=== PATIENT | male | born 1965 | race Hispanic/Latino ===

== ENCOUNTER → 2019-06-21 | Outpatient (CLI) | payer MEDICARE ==
[~2019-06-21] MED LIST: LIDOCAINE HCL 2% JELLY 5 ML ONE
[2019-06-21 13:27] VITALS: BP 160/85
== END | disposition home or self-care (01) ==
LOC: WHH 10:00
PROVIDERS: ATTEND Family Medicine
DX: T81.89XA Other complications of procedures, not elsewhere classified, initial encounter (principal); E11.22 Type 2 diabetes mellitus with diabetic chronic kidney disease; I12.0 Hypertensive chronic kidney disease with stage 5 chronic kidney disease or end stage renal disease; N18.6 End stage renal disease; E78.5 Hyperlipidemia, unspecified; F17.290 Nicotine dependence, other tobacco product, uncomplicated; Z99.2 Dependence on renal dialysis; Y83.8 Other surgical procedures as the cause of abnormal reaction of the patient, or of later complication, without mention of misadventure at the time of the procedure; Y92.89 Other specified places as the place of occurrence of the external cause
CPT/HCPCS: 87070; 87077 ×3; 87186 ×3; A6022; A6197; G0463

== ENCOUNTER → 2019-06-28 | Outpatient (CLI) | payer MEDICARE ==
[2019-06-28 10:37] VITALS: BP 135/83
== END | disposition home or self-care (01) ==
LOC: WHH 08:30
PROVIDERS: ATTEND Family Medicine
DX: T81.89XD Other complications of procedures, not elsewhere classified, subsequent encounter (principal); E11.22 Type 2 diabetes mellitus with diabetic chronic kidney disease; I12.0 Hypertensive chronic kidney disease with stage 5 chronic kidney disease or end stage renal disease; N18.6 End stage renal disease; E78.5 Hyperlipidemia, unspecified; F17.290 Nicotine dependence, other tobacco product, uncomplicated; Z99.2 Dependence on renal dialysis; Y83.8 Other surgical procedures as the cause of abnormal reaction of the patient, or of later complication, without mention of misadventure at the time of the procedure
CPT/HCPCS: 11042; 82948; A6022; A6196

== ENCOUNTER → 2019-11-18 | Outpatient (CLI) | payer MEDICARE ==
[~2019-11-18] MED LIST changes: +AMLO-258 PO; +AMOX-429 PO; +ASPI-556 PO; +ATOR20TA65 PO; +CARV25TA PO; +FOLI1TAB85 PO; +HONEY 1 APPL/ML TUBE TP ONE; +HYDR-3420 PO; +INSU100C6 SQ; +INSU100V12 SQ; +LEVO500T2 PO; -LIDOCAINE HCL 2% JELLY 5 ML ONE; +LIDOCAINE HCL 4% LTA SOL 4 ML VIAL ONE; +LOSA100T58 PO
[2019-11-18 12:05] VITALS: BP 174/91
== END | disposition home or self-care (01) ==
LOC: WHH 09:00
PROVIDERS: ATTEND Family Medicine
DX: E11.621 Type 2 diabetes mellitus with foot ulcer (principal); L97.522 Non-pressure chronic ulcer of other part of left foot with fat layer exposed; E11.22 Type 2 diabetes mellitus with diabetic chronic kidney disease; I12.0 Hypertensive chronic kidney disease with stage 5 chronic kidney disease or end stage renal disease; N18.6 End stage renal disease; E11.51 Type 2 diabetes mellitus with diabetic peripheral angiopathy without gangrene; I25.10 Atherosclerotic heart disease of native coronary artery without angina pectoris; E78.5 Hyperlipidemia, unspecified; F17.210 Nicotine dependence, cigarettes, uncomplicated; F32.9 Major depressive disorder, single episode, unspecified; F41.9 Anxiety disorder, unspecified; Z99.2 Dependence on renal dialysis
CPT/HCPCS: 11042; A4450

== ENCOUNTER → 2019-11-22 | Outpatient (CLI) | payer MEDICARE ==
[~2019-11-22] MED LIST changes: -HONEY 1 APPL/ML TUBE TP ONE; -LIDOCAINE HCL 4% LTA SOL 4 ML VIAL ONE
== END | disposition home or self-care (01) ==
LOC: WHH 09:20
PROVIDERS: ATTEND Family Medicine
DX: E11.621 Type 2 diabetes mellitus with foot ulcer (principal); L97.511 Non-pressure chronic ulcer of other part of right foot limited to breakdown of skin; E11.22 Type 2 diabetes mellitus with diabetic chronic kidney disease; I12.0 Hypertensive chronic kidney disease with stage 5 chronic kidney disease or end stage renal disease; N18.6 End stage renal disease; E11.51 Type 2 diabetes mellitus with diabetic peripheral angiopathy without gangrene; I25.10 Atherosclerotic heart disease of native coronary artery without angina pectoris; E78.5 Hyperlipidemia, unspecified; F41.9 Anxiety disorder, unspecified; F32.9 Major depressive disorder, single episode, unspecified; Z99.2 Dependence on renal dialysis
CPT/HCPCS: 93923; G0463

== ENCOUNTER → 2019-11-28 | Outpatient (CLI) | payer MEDICARE | END | disposition home or self-care (01) | LOC: RAH 13:43 | PROVIDERS: ATTEND Family Medicine | DX: E13.621 Other specified diabetes mellitus with foot ulcer (principal); M19.071 Primary osteoarthritis, right ankle and foot ==

== ENCOUNTER → 2019-12-09 | Outpatient (CLI) | payer MEDICARE ==
[~2019-12-09] MED LIST changes: -AMLO-258 PO; +AMLO10TA7 PO; +LIDOCAINE HCL 4% LTA SOL 4 ML VIAL ONE
== END | disposition home or self-care (01) ==
LOC: WHH 09:20
PROVIDERS: ATTEND Family Medicine
DX: E11.621 Type 2 diabetes mellitus with foot ulcer (principal); L97.512 Non-pressure chronic ulcer of other part of right foot with fat layer exposed; E11.22 Type 2 diabetes mellitus with diabetic chronic kidney disease; I12.0 Hypertensive chronic kidney disease with stage 5 chronic kidney disease or end stage renal disease; N18.6 End stage renal disease; E11.21 Type 2 diabetes mellitus with diabetic nephropathy; E11.51 Type 2 diabetes mellitus with diabetic peripheral angiopathy without gangrene; I25.10 Atherosclerotic heart disease of native coronary artery without angina pectoris; M19.071 Primary osteoarthritis, right ankle and foot; E66.9 Obesity, unspecified; E78.5 Hyperlipidemia, unspecified; F32.9 Major depressive disorder, single episode, unspecified; F41.9 Anxiety disorder, unspecified; F17.210 Nicotine dependence, cigarettes, uncomplicated; Z90.49 Acquired absence of other specified parts of digestive tract; Z99.2 Dependence on renal dialysis; Z68.1 Body mass index [BMI] 19.9 or less, adult
CPT/HCPCS: 11042; 11045; 87070; 87077; 87186; A6197

== ENCOUNTER → 2019-12-16 | Outpatient (CLI) | payer MEDICARE ==
[~2019-12-16] MED LIST changes: -AMLO10TA7 PO; -AMOX-429 PO; -ASPI-556 PO; -ATOR20TA65 PO; -CARV25TA PO; -FOLI1TAB85 PO; +GENTAMICIN SULFATE 15 GM CREAM.GM. TP ONE; -HYDR-3420 PO; -INSU100C6 SQ; -INSU100V12 SQ; -LEVO500T2 PO; -LOSA100T58 PO
== END | disposition home or self-care (01) ==
LOC: WHH 09:15
PROVIDERS: ATTEND Family Medicine
DX: E11.621 Type 2 diabetes mellitus with foot ulcer (principal); L97.515 Non-pressure chronic ulcer of other part of right foot with muscle involvement without evidence of necrosis; E11.22 Type 2 diabetes mellitus with diabetic chronic kidney disease; I12.9 Hypertensive chronic kidney disease with stage 1 through stage 4 chronic kidney disease, or unspecified chronic kidney disease; N18.6 End stage renal disease; E11.21 Type 2 diabetes mellitus with diabetic nephropathy; E11.51 Type 2 diabetes mellitus with diabetic peripheral angiopathy without gangrene; I25.10 Atherosclerotic heart disease of native coronary artery without angina pectoris; E66.9 Obesity, unspecified; M19.071 Primary osteoarthritis, right ankle and foot; E78.5 Hyperlipidemia, unspecified; F32.9 Major depressive disorder, single episode, unspecified; F17.210 Nicotine dependence, cigarettes, uncomplicated; F41.9 Anxiety disorder, unspecified; Z99.2 Dependence on renal dialysis; Z68.1 Body mass index [BMI] 19.9 or less, adult; Z90.49 Acquired absence of other specified parts of digestive tract
CPT/HCPCS: 11043; 11046; A6197

== ENCOUNTER → 2019-12-23 | Outpatient (CLI) | payer MEDICARE | END | disposition home or self-care (01) | LOC: WHH 09:00 | PROVIDERS: ATTEND Family Medicine | DX: E11.621 Type 2 diabetes mellitus with foot ulcer (principal); L97.512 Non-pressure chronic ulcer of other part of right foot with fat layer exposed; E11.22 Type 2 diabetes mellitus with diabetic chronic kidney disease; I12.0 Hypertensive chronic kidney disease with stage 5 chronic kidney disease or end stage renal disease; N18.6 End stage renal disease; E11.21 Type 2 diabetes mellitus with diabetic nephropathy; E11.51 Type 2 diabetes mellitus with diabetic peripheral angiopathy without gangrene; I25.10 Atherosclerotic heart disease of native coronary artery without angina pectoris; E78.5 Hyperlipidemia, unspecified; E66.9 Obesity, unspecified; M19.071 Primary osteoarthritis, right ankle and foot; F32.9 Major depressive disorder, single episode, unspecified; F17.210 Nicotine dependence, cigarettes, uncomplicated; F41.9 Anxiety disorder, unspecified; Z90.49 Acquired absence of other specified parts of digestive tract; Z99.2 Dependence on renal dialysis ==

== ENCOUNTER → 2019-12-25 | Outpatient (CLI) | payer MEDICARE ==
[~2019-12-25] MED LIST changes: +AMLO10TA7 PO; +AMOX-429 PO; +ASPI-556 PO; +ATOR20TA65 PO; +CARV25TA PO; +FOLI1TAB85 PO; -GENTAMICIN SULFATE 15 GM CREAM.GM. TP ONE; +HYDR-3420 PO; +INSU100C6 SQ; +INSU100V12 SQ; +LEVO500T2 PO; -LIDOCAINE HCL 4% LTA SOL 4 ML VIAL ONE; +LOSA100T58 PO
== END | disposition home or self-care (01) ==
LOC: WHH 09:00
PROVIDERS: ATTEND Podiatrist Foot & Ankle Surgery
DX: E11.621 Type 2 diabetes mellitus with foot ulcer (principal); L97.512 Non-pressure chronic ulcer of other part of right foot with fat layer exposed; I70.235 Atherosclerosis of native arteries of right leg with ulceration of other part of foot; I70.202 Unspecified atherosclerosis of native arteries of extremities, left leg; E11.22 Type 2 diabetes mellitus with diabetic chronic kidney disease; I12.0 Hypertensive chronic kidney disease with stage 5 chronic kidney disease or end stage renal disease; N18.6 End stage renal disease; E11.21 Type 2 diabetes mellitus with diabetic nephropathy; E11.51 Type 2 diabetes mellitus with diabetic peripheral angiopathy without gangrene; I25.10 Atherosclerotic heart disease of native coronary artery without angina pectoris; E78.5 Hyperlipidemia, unspecified; E66.9 Obesity, unspecified; M19.071 Primary osteoarthritis, right ankle and foot; F32.9 Major depressive disorder, single episode, unspecified; F17.210 Nicotine dependence, cigarettes, uncomplicated; F41.9 Anxiety disorder, unspecified; Z90.49 Acquired absence of other specified parts of digestive tract; Z68.1 Body mass index [BMI] 19.9 or less, adult; Z99.2 Dependence on renal dialysis
CPT/HCPCS: G0463

== ENCOUNTER → 2019-12-30 | Outpatient (CLI) | payer MEDICARE ==
[~2019-12-30] MED LIST changes: +LIDOCAINE HCL 4% LTA SOL 4 ML VIAL ONE
== END | disposition home or self-care (01) ==
LOC: WHH 09:00
PROVIDERS: ATTEND Family Medicine
DX: E11.621 Type 2 diabetes mellitus with foot ulcer (principal); L97.512 Non-pressure chronic ulcer of other part of right foot with fat layer exposed; I70.235 Atherosclerosis of native arteries of right leg with ulceration of other part of foot; I70.202 Unspecified atherosclerosis of native arteries of extremities, left leg; E11.22 Type 2 diabetes mellitus with diabetic chronic kidney disease; I12.0 Hypertensive chronic kidney disease with stage 5 chronic kidney disease or end stage renal disease; N18.6 End stage renal disease; E11.21 Type 2 diabetes mellitus with diabetic nephropathy; E11.51 Type 2 diabetes mellitus with diabetic peripheral angiopathy without gangrene; I25.10 Atherosclerotic heart disease of native coronary artery without angina pectoris; E78.5 Hyperlipidemia, unspecified; E66.9 Obesity, unspecified; M19.071 Primary osteoarthritis, right ankle and foot; F32.9 Major depressive disorder, single episode, unspecified; F17.210 Nicotine dependence, cigarettes, uncomplicated; F41.9 Anxiety disorder, unspecified; Z90.49 Acquired absence of other specified parts of digestive tract; Z68.1 Body mass index [BMI] 19.9 or less, adult; Z99.2 Dependence on renal dialysis
CPT/HCPCS: 11042; 11045; A6197

== ENCOUNTER → 2020-01-06 | Outpatient (CLI) | payer MEDICARE | END | disposition home or self-care (01) | LOC: WHH 09:15 | PROVIDERS: ATTEND Family Medicine | DX: E11.621 Type 2 diabetes mellitus with foot ulcer (principal); L97.515 Non-pressure chronic ulcer of other part of right foot with muscle involvement without evidence of necrosis; I70.235 Atherosclerosis of native arteries of right leg with ulceration of other part of foot; I70.202 Unspecified atherosclerosis of native arteries of extremities, left leg; E11.22 Type 2 diabetes mellitus with diabetic chronic kidney disease; I12.0 Hypertensive chronic kidney disease with stage 5 chronic kidney disease or end stage renal disease; N18.6 End stage renal disease; E11.21 Type 2 diabetes mellitus with diabetic nephropathy; E11.51 Type 2 diabetes mellitus with diabetic peripheral angiopathy without gangrene; I25.10 Atherosclerotic heart disease of native coronary artery without angina pectoris; E78.5 Hyperlipidemia, unspecified; E66.9 Obesity, unspecified; M19.071 Primary osteoarthritis, right ankle and foot; F32.9 Major depressive disorder, single episode, unspecified; F17.210 Nicotine dependence, cigarettes, uncomplicated; F41.9 Anxiety disorder, unspecified; Z90.49 Acquired absence of other specified parts of digestive tract; Z68.1 Body mass index [BMI] 19.9 or less, adult; Z99.2 Dependence on renal dialysis | CPT/HCPCS: 11042; 11045; A4450; A6197; L3260 ==

== ENCOUNTER → 2020-01-08 | Outpatient (CLI) | payer MEDICARE | END | disposition home or self-care (01) | LOC: WHH 09:00 | PROVIDERS: ATTEND Podiatrist Foot & Ankle Surgery | DX: E11.621 Type 2 diabetes mellitus with foot ulcer (principal); L97.515 Non-pressure chronic ulcer of other part of right foot with muscle involvement without evidence of necrosis; I70.235 Atherosclerosis of native arteries of right leg with ulceration of other part of foot; I70.202 Unspecified atherosclerosis of native arteries of extremities, left leg; E11.22 Type 2 diabetes mellitus with diabetic chronic kidney disease; I12.0 Hypertensive chronic kidney disease with stage 5 chronic kidney disease or end stage renal disease; N18.6 End stage renal disease; E11.51 Type 2 diabetes mellitus with diabetic peripheral angiopathy without gangrene; E11.52 Type 2 diabetes mellitus with diabetic peripheral angiopathy with gangrene; I96 Gangrene, not elsewhere classified; E11.21 Type 2 diabetes mellitus with diabetic nephropathy; I25.10 Atherosclerotic heart disease of native coronary artery without angina pectoris; E78.5 Hyperlipidemia, unspecified; E66.9 Obesity, unspecified; M19.071 Primary osteoarthritis, right ankle and foot; F32.9 Major depressive disorder, single episode, unspecified; F17.210 Nicotine dependence, cigarettes, uncomplicated; F41.9 Anxiety disorder, unspecified; Z90.49 Acquired absence of other specified parts of digestive tract; Z68.1 Body mass index [BMI] 19.9 or less, adult; Z99.2 Dependence on renal dialysis | CPT/HCPCS: A6197; G0463 ==

== ENCOUNTER 2020-01-09 13:14 | Inpatient (IN) | payer MEDICARE ==
[~2020-01-09] VITALS: Ht 180.3 cm; Wt 134.6 kg
[2020-01-09] MEDS ORDERED: ACETAMINOPHEN EXTRA STRENGTH 500 MG TABLET ONE (13:54)
[2020-01-09 15:01] LABS: BASOPHILS % (AUTO) 0.4 % (0.0-5.0); EOSINOPHILS % (AUTO) 1.7 % (0.0-8.0); HEMATOCRIT 27.1 % (42-54); LYMPHOCYTES % (AUTO) 8.7 % (21.0-51.0); MEAN CORPUSCULAR HEMOGLOBIN 30.4 pg (27.0-33.0); MEAN CORPUSCULAR HGB CONC 31.4 g/dL (32.0-36.0); MEAN CORPUSCULAR VOLUME 96.8 fL (79-99); NEUTROPHILS % (AUTO) 81.4 % (40.0-77.0); PLATELET COUNT (AUTO) 193 K/uL (130-400); RED CELL DISTRIBUTION WIDTH 15.7 % (11.0-15.5)
[2020-01-09 15:14] LABS: CARBON DIOXIDE 29 mmol/L (21-32); CHLORIDE 95 mmol/L (101-111); CREATININE 5.5 mg/dL (0.5-1.5); GLOMERULAR FILTR. RATE CALC 12 mL/min (>60); GLUCOSE,RANDOM 336 mg/dL (70-105); POTASSIUM 4.5 mmol/L (3.5-5.1); SODIUM SERUM 134 mmol/L (136-145); UREA NITROGEN, BLOOD 33 mg/dL (7-18)
[2020-01-09 15:16] LABS: INR 1.12 (0.85-1.15); PARTIAL THROMBOPLASTIN TIME 26.1 SEC (26.3-35.5)
[2020-01-09 15:27] LABS: ALANINE AMINOTRANSFERASE 25 U/L (12-78); ALBUMIN 2.9 g/dL (3.5-5.0); ASPARTATE AMINOTRANSFERASE 17 U/L (10-37); BILIRUBIN,TOTAL 0.4 mg/dL (0.2-1.0); CREATINE KINASE, TOTAL 194 U/L (21-232); MYOGLOBIN 851 ng/mL (10-92); TOTAL PROTEIN, SERUM 7.9 g/dL (6.0-8.3); TROPONIN I < 0.04 ng/mL (0.00-0.06)
[2020-01-09] MEDS ORDERED: VANCOMYCIN 1GM+NS 250ML 250 ML IV ONE (17:09)
[2020-01-09] MEDS: ZOSYN 3.375GM+NS 50ML 50 ML IV SCH (18:00)
[2020-01-09] MEDS ORDERED: INSULIN HUMULIN R 100 UNIT/ML 3ML ONE (18:09)
[2020-01-09] MEDS ORDERED: VANCOMYCIN PROTOCOL PER PHARMACY IV SCH (18:45)
[2020-01-09] MEDS ORDERED: COMPOUND IV REFRIGERATED 1 EACH IVSOLN MISC PRN (19:30)
[2020-01-09] MEDS ORDERED: VANCOMYCIN 1.5 GM in SODIUM CHLORIDE 0.9% 250 ML IV ONE (20:00)
[2020-01-10 04:29] LABS: HEMATOCRIT 25.6 % (42-54); MEAN CORPUSCULAR HEMOGLOBIN 29.7 pg (27.0-33.0); MEAN CORPUSCULAR HGB CONC 30.9 g/dL (32.0-36.0); MEAN CORPUSCULAR VOLUME 96.2 fL (79-99); PLATELET COUNT (AUTO) 165 K/uL (130-400); RED BLOOD CELL COUNT(AUTO) 2.66 MIL/uL (4.50-6.20); RED CELL DISTRIBUTION WIDTH 15.5 % (11.0-15.5); WHITE BLOOD COUNT (AUTO) 9.3 K/uL (4.8-10.8)
[2020-01-10 04:48] LABS: CREATININE 5.9 mg/dL (0.5-1.5); POTASSIUM 4.2 mmol/L (3.5-5.1)
[2020-01-10 04:55] LABS: EOSINOPHILS % (MANUAL) 5 % (1-6); LYMPHOCYTES % (MANUAL) 11 % (22-44); MAN.DIFF COMMENT-IMPRESSION MANUAL DIFFERENTIAL; MONOCYTES % (MANUAL) 4 % (2-9); SEGMENTED NEUTROPHILS % 80 % (40-70)
[2020-01-10] MEDS: ZOSYN 3.375GM+NS 50ML 50 ML IV SCH ×2 (06:00→17:56)
[2020-01-10 12:00] VITALS: BP 153/79
[2020-01-10] MEDS ORDERED: DEXTROSE 50%-WATER 50 ML DISP.SYRIN IV PRN (12:15)
[2020-01-10] MEDS ORDERED: GLUCAGON 1MG KIT 1 MG ML IM PRN (12:15)
[2020-01-10] MEDS: INSULIN R PO SS1 SQ SCH ×2 (13:30→17:58)
[2020-01-10 16:00] VITALS: BP 144/80
--- NOTE | 2020-01-10 16:03 | NUR ---
RADHA NOTE/IA UNABLE TO MEET WITH PATIENT IN ROOM. SPOUSE, THEODORA SHARP, CALLED. PER SPOUSE, LIVES WITH HER, IS SEMI INDEPENDENT BUT CURRENTLY NEEDS HELP WITH ADLS INCLUDING INCONTINENCE CARE, HAS USE OF WALKER BUT UNABLE TO USE SINCE HE IS BECOMING MORE AND MORE WEAK, ATTENDS [facility], AND FEELS SAFE FOR PATIENT TO RETURN HOME ONCE DISCHARGED FROM HOSPITAL. Addendum: 01/10/20 at 1605 by FELA HINOJOSA RN CM Amended: Links added.
--- NOTE | 2020-01-10 19:45 | NUR ---
PM Assessment Received pt lying supine position on room air, routine assessment done, plan of care discuss, confirm awareness plan surgery for Monday. PT currently denies discomfort, home medication followed up with pt stated can't recall names of medication provided me with his 's number Leah Villagran # [phone].
[2020-01-10 20:12] VITALS: BP 175/86
--- NOTE | 2020-01-10 21:20 | NUR ---
Re: home medications Phoned pt's Leah Villagran obtain all pt's medication by her reading it from the bottle. The only one she is not sure was the Levemir how many units, verified with the pt & stated he takes with breakfast 98 units daily, with a comment stating that it does not help bring his sugar down. I told pt it might be what he is eating & also with his wound, infection. Inform the pt he need to make sure to regulate his diet, which pt stated "I know it".
[2020-01-10] MEDS: INSULIN HUMULIN R 100 UNIT/ML 3ML SQ SCH (22:30)
[2020-01-10] MEDS ORDERED: HYDR-3420 PO (23:52)
[2020-01-10] MEDS ORDERED: AMLO10TA7 PO (23:52)
[2020-01-10] MEDS ORDERED: FOLI1TAB85 PO (23:52)
[2020-01-10] MEDS ORDERED: INSU100C6 SQ (23:52)
[2020-01-10] MEDS ORDERED: LOSA100T58 PO (23:52)
[2020-01-10] MEDS ORDERED: ASPI-556 PO (23:52)
[2020-01-10] MEDS ORDERED: CARV25TA PO (23:52)
[2020-01-10] MEDS ORDERED: ATOR20TA65 PO (23:52)
[2020-01-10] MEDS ORDERED: INSU100V12 SQ (23:52)
[2020-01-11] VITALS (7 sets, daily range): BP systolic 134–203; BP diastolic 66–104
[2020-01-11 05:31] LABS: HEMATOCRIT 28.3 % (42-54); MEAN CORPUSCULAR HEMOGLOBIN 30.5 pg (27.0-33.0); MEAN CORPUSCULAR HGB CONC 32.2 g/dL (32.0-36.0); RED BLOOD CELL COUNT(AUTO) 2.98 MIL/uL (4.50-6.20); RED CELL DISTRIBUTION WIDTH 15.4 % (11.0-15.5); WHITE BLOOD COUNT (AUTO) 9.3 K/uL (4.8-10.8)
[2020-01-11] MEDS: ZOSYN 3.375GM+NS 50ML 50 ML IV SCH ×2 (05:40→17:23)
[2020-01-11 05:47] LABS: PHOSPHORUS 8.5 mg/dL (2.5-4.9); POTASSIUM 5.1 mmol/L (3.5-5.1)
[2020-01-11 05:56] LABS: CREATININE 9.2 mg/dL (0.5-1.5)
[2020-01-11] MEDS: INSULIN HUMULIN R 100 UNIT/ML 3ML SQ SCH ×4 (06:44→21:24)
[2020-01-11] MEDS: TRAMADOL HCL 50 MG TABLET PO PRN (08:13)
[2020-01-11] MEDS: VANCOMYCIN 1.5 GM in SODIUM CHLORIDE 0.9% 250 ML IV SCH (12:26)
--- NOTE | 2020-01-11 14:24 | NUR ---
DIALYSIS PATIENT RECEIVED DIALYSIS TODAY FROM 1045 HOURS TO 1345 HOURS REMOVING 3.7 LITERS. PATIENT TOLERATED PROCEDURE WITHOUT INCIDENT.
[2020-01-11] MEDS: ACETAMINOPHEN 325 MG TAB PO PRN (15:05)
--- NOTE | 2020-01-11 15:50 | NUR ---
DR. MAE PAGED DR. MAE ([phone]) TO ADVISE COVID RESULTS RECEIVED WERE NEGATIVE. Addendum: 01/11/20 at 1659 by CHE ARCEO RN RN RECEIVED CALL FROM DR. MAE TO ADVISE COVID RESULT OF POSITIVE. DR. MAE ADVISED OK TO TRANSFER TO NON-COVID UNIT. ALSO ADVISED DR. MAE OF ELEVATED BLOOD PRESSURE OF 203/104. DR. MAE ADVISED TO RESUME HOME MEDICATIONS.
[2020-01-11] MEDS ORDERED: INSULIN ASPART 20 UNIT SQ SCH (17:00)
[2020-01-11] MEDS ORDERED: PHARMACY COMMUNICATION MISC SCH ×2 (17:45)
[2020-01-11] MEDS: HYDRALAZINE HCL 10 MG TABLET PO SCH ×2 (18:49→21:45)
[2020-01-11] MEDS ORDERED: CARVEDILOL 25 MG TABLET PO ONE (19:45)
[2020-01-11] MEDS ORDERED: HYDRALAZINE HCL 25 MG TABLET ONE (19:51)
[2020-01-11] MEDS: ATORVASTATIN CALCIUM 20 MG TABLET PO SCH (21:49)
[2020-01-12 00:20] VITALS: BP 161/82
[2020-01-12 04:20] VITALS: BP 168/88
[2020-01-12] MEDS: ZOSYN 3.375GM+NS 50ML 50 ML IV SCH ×2 (06:00→18:00)
[2020-01-12 08:00] VITALS: BP 168/88
[2020-01-12] MEDS: FOLIC ACID/VITAMIN B COMP W-C 1 CAP TAB PO SCH (08:46)
[2020-01-12] MEDS: LOSARTAN 100 MG TABLET PO SCH (08:46)
[2020-01-12] MEDS: AMLODIPINE BESYLATE 5 MG TAB PO SCH (08:46)
[2020-01-12] MEDS: ASPIRIN 81 MG EC TAB PO SCH (08:46)
[2020-01-12] MEDS: HYDRALAZINE HCL 10 MG TABLET PO SCH ×3 (08:46→21:37)
[2020-01-12] MEDS: CARVEDILOL 25 MG TABLET PO SCH ×2 (08:47→21:37)
[2020-01-12] MEDS: INSULIN LISPRO 100 UNIT/ML 3ML SQ SCH ×2 (08:49→13:50)
[2020-01-12] MEDS: INSULIN GLARGINE 100 UNITS/ML 10 ML VIAL SQ SCH (08:50)
[2020-01-12] MEDS: INSULIN HUMULIN R 100 UNIT/ML 3ML SQ SCH ×4 (08:51→20:30)
[2020-01-12] MEDS ORDERED: NON-FORMULARY MEDICATION 1 EACH (Vit B Cmplx 3/FA/Vit C/Biotin (Rena-Vite Rx Tablet) 1 EAC PO SCH (09:00)
[2020-01-12] MEDS: TRAMADOL HCL 50 MG TABLET PO PRN (09:06)
[2020-01-12] MEDS ORDERED: VANCOMYCIN 1.25 GM in SODIUM CHLORIDE 0.9% 250 ML IV SCH (11:00)
[2020-01-12 11:36] VITALS: BP 143/75
[2020-01-12 16:34] VITALS: BP 121/61
[2020-01-12 20:00] VITALS: BP 132/70
[2020-01-12] MEDS: ATORVASTATIN CALCIUM 20 MG TABLET PO SCH (21:37)
[2020-01-13] VITALS (26 sets, daily range): BP systolic 112–139; BP diastolic 57–98
[2020-01-13 04:00] LABS: HEMATOCRIT 24.4 % (42-54); MEAN CORPUSCULAR HEMOGLOBIN 30.2 pg (27.0-33.0); MEAN CORPUSCULAR HGB CONC 32.4 g/dL (32.0-36.0); MEAN CORPUSCULAR VOLUME 93.1 fL (79-99); PLATELET COUNT (AUTO) 169 K/uL (130-400); RED BLOOD CELL COUNT(AUTO) 2.62 MIL/uL (4.50-6.20); RED CELL DISTRIBUTION WIDTH 15.1 % (11.0-15.5); WHITE BLOOD COUNT (AUTO) 7.3 K/uL (4.8-10.8)
[2020-01-13 04:20] LABS: PHOSPHORUS 10.1 mg/dL (2.5-4.9); POTASSIUM 5.9 mmol/L (3.5-5.1)
[2020-01-13 04:49] LABS: CREATININE 10.4 mg/dL (0.5-1.5)
[2020-01-13] MEDS: ZOSYN 3.375GM+NS 50ML 50 ML IV SCH ×2 (05:54→17:17)
[2020-01-13] MEDS: CARVEDILOL 25 MG TABLET PO SCH ×2 (05:55→20:59)
[2020-01-13] MEDS: INSULIN HUMULIN R 100 UNIT/ML 3ML SQ SCH ×5 (06:14→21:48)
[2020-01-13] MEDS: INSULIN LISPRO 100 UNIT/ML 3ML SQ SCH ×3 (06:15→17:12)
[2020-01-13 06:48] LABS: BAND NEUTROPHILS % (MANUAL) 1 % (0-2); BASOPHILS % (MANUAL) 1 % (0-2); LYMPHOCYTES % (MANUAL) 10 % (22-44); MONOCYTES % (MANUAL) 13 % (2-9); SEGMENTED NEUTROPHILS % 75 % (40-70)
[2020-01-13 06:49] LABS: MAN.DIFF COMMENT-IMPRESSION MANUAL DIFFERENTIAL
[2020-01-13 06:50] LABS: PLATELET MORPHOLOGY COMMENT ADEQUATE
[2020-01-13] MEDS ORDERED: BUPIVACAINE/PF 0.5% 10ML VIAL ONE (07:14)
[2020-01-13] MEDS ORDERED: LIDOCAINE HCL 1% 20 ML VIAL ONE (07:14)
[2020-01-13] MEDS ORDERED: LIDOCAINE HCL MPF 1% 5ML VIAL ONE (07:15)
[2020-01-13] MEDS ORDERED: PROPOFOL 10 MG/ML 20ML VIAL IV ONE (07:15)
[2020-01-13] MEDS ORDERED: ONDANSETRON HCL 4 MG/2 ML VIAL ONE (07:15)
[2020-01-13] MEDS ORDERED: FENTANYL CITRATE PF 50 MCG/1 ML 2ML VIAL ONE (07:15)
--- NOTE | 2020-01-13 07:30 | NUR ---
surgery pt transferred to surgery via bed
[2020-01-13] MEDS: INSULIN GLARGINE 100 UNITS/ML 10 ML VIAL SQ SCH (09:00)
[2020-01-13] MEDS: HYDRALAZINE HCL 10 MG TABLET PO SCH ×3 (12:00→20:51)
[2020-01-13] MEDS: ASPIRIN 81 MG EC TAB PO SCH (12:00)
[2020-01-13] MEDS: LOSARTAN 100 MG TABLET PO SCH (13:54)
[2020-01-13] MEDS: FOLIC ACID/VITAMIN B COMP W-C 1 CAP TAB PO SCH (13:55)
[2020-01-13] MEDS: AMLODIPINE BESYLATE 5 MG TAB PO SCH (13:55)
[2020-01-13] MEDS: HYDROMORPHONE HCL 0.5 MG/0.5 ML ML IVP PRN (17:28)
[2020-01-13] MEDS ORDERED: SODIUM POLYSTYRENE SULFONATE 15 GM/60 ML ML PO STA (18:31)
[2020-01-13] MEDS: ATORVASTATIN CALCIUM 20 MG TABLET PO SCH (20:50)
[2020-01-13] MEDS: TRAMADOL HCL 50 MG TABLET PO PRN (20:51)
--- NOTE | 2020-01-13 20:51 | NUR ---
PAIN Medicated with Tramadol for c/o of phantom pain.
--- NOTE | 2020-01-13 21:51 | NUR ---
MED EFFECT Resting in bed,no signs of pain.
--- NOTE | 2020-01-13 23:30 | NUR ---
BM Pt had a large bowel movement.
--- NOTE | 2020-01-13 23:41 | NUR ---
DRESSING Rt foot dressing reinforced with teagan bandages.Instructed pt to keep rt leg elevated,pt does not comply with instructions given.
[2020-01-14] MEDS: HYDROMORPHONE HCL 0.5 MG/0.5 ML ML IVP PRN ×3 (01:28→20:30)
--- NOTE | 2020-01-14 01:28 | NUR ---
PAIN Pt medicated with DIlaudid for c/o of pain to rt foot.
--- NOTE | 2020-01-14 02:28 | NUR ---
MED EFFECT Pt resting quietly,respirations even and unlabored.
[2020-01-14 03:32] VITALS: BP 110/63
[2020-01-14] MEDS: INSULIN HUMULIN R 100 UNIT/ML 3ML SQ SCH ×4 (05:27→20:03)
[2020-01-14] MEDS: ZOSYN 3.375GM+NS 50ML 50 ML IV SCH ×2 (05:41→17:46)
[2020-01-14 06:03] LABS: BASOPHILS % (AUTO) 0.5 % (0.0-5.0); EOSINOPHILS % (AUTO) 2.9 % (0.0-8.0); HEMATOCRIT 23.7 % (42-54); LYMPHOCYTES % (AUTO) 12.5 % (21.0-51.0); MEAN CORPUSCULAR HGB CONC 31.6 g/dL (32.0-36.0); MEAN CORPUSCULAR VOLUME 94.8 fL (79-99); MONOCYTES % (AUTO) 11.4 % (3.0-13.0); NEUTROPHILS % (AUTO) 72.1 % (40.0-77.0); PLATELET COUNT (AUTO) 174 K/uL (130-400); RED CELL DISTRIBUTION WIDTH 15.4 % (11.0-15.5); WHITE BLOOD COUNT (AUTO) 8.7 K/uL (4.8-10.8)
[2020-01-14 06:23] LABS: % IRON SATURATION 18.4 % (30-44)
[2020-01-14 06:42] LABS: ALBUMIN 2.3 g/dL (3.5-5.0); BILIRUBIN,TOTAL 0.4 mg/dL (0.2-1.0); VANCOMYCIN LEVEL 15.8 mcg/mL (18.0-26.0)
[2020-01-14 06:48] LABS: POTASSIUM 6.1 mmol/L (3.5-5.1)
[2020-01-14 06:49] LABS: CREATININE 12.3 mg/dL (0.5-1.5)
[2020-01-14 07:50] VITALS: BP 124/68
[2020-01-14] MEDS: INSULIN LISPRO 100 UNIT/ML 3ML SQ SCH ×3 (08:00→17:00)
--- NOTE | 2020-01-14 08:05 | NUR ---
DIALYSIS explained to pt dialysis CALIN due to k=6.1 BUN=78 CREAT=12.3 dialysis nurse container finisher notified
[2020-01-14] MEDS: INSULIN GLARGINE 100 UNITS/ML 10 ML VIAL SQ SCH (09:00)
[2020-01-14] MEDS: HYDRALAZINE HCL 10 MG TABLET PO SCH ×3 (09:00→19:59)
[2020-01-14] MEDS: CARVEDILOL 25 MG TABLET PO SCH ×2 (09:00→20:00)
[2020-01-14 11:11] VITALS: BP 114/55
--- NOTE | 2020-01-14 12:21 | NUR ---
RD NOTIFICATION - NUTRITION EDUCATION Pt admitted with R-Foot cellulitis. History of ESRD on HD. Monitored labs: K 6.1, BUN 78, Cr 12.3, GFR 5, P 12.0, Alb 2.3. Attempt to call Pt for nutrition education; no answer. RD faxed Dialysis Diet Nutrition education to [facility] ([phone]) per RN request. Pt with Good PO intake. RD to continue to monitor. Please notify as additional nutrition concerns arise. Thank you.
--- NOTE | 2020-01-14 12:24 | NUR ---
NUTRITION EDUCATION Attempt to call Pt for nutrition education; no answer. Dialysis Diet Nutrition education faxed to [facility] ([phone] per RN request. Addendum: 01/14/20 at [address] Amended: Links added.
[2020-01-14] MEDS ORDERED: HYDROMORPHONE 1 MG/1 ML AMP IVP PRN (15:00)
[2020-01-14] MEDS ORDERED: HYDROMORPHONE HCL 0.5 MG/0.5 ML ML ONE (15:09)
[2020-01-14] MEDS: LOSARTAN 100 MG TABLET PO SCH (15:14)
[2020-01-14] MEDS: FOLIC ACID/VITAMIN B COMP W-C 1 CAP TAB PO SCH (15:15)
[2020-01-14] MEDS: ASPIRIN 81 MG EC TAB PO SCH (15:17)
[2020-01-14] MEDS: AMLODIPINE BESYLATE 5 MG TAB PO SCH (15:17)
[2020-01-14 16:00] VITALS: BP 147/68
[2020-01-14] MEDS: VANCOMYCIN 1.5 GM in SODIUM CHLORIDE 0.9% 250 ML IV SCH (17:40)
[2020-01-14] MEDS: ATORVASTATIN CALCIUM 20 MG TABLET PO SCH (19:59)
[2020-01-14] MEDS: ACETAMINOPHEN 325 MG TAB PO PRN (19:59)
[2020-01-14 20:00] VITALS: BP 168/95
--- NOTE | 2020-01-14 20:00 | NUR ---
Pts. called and crying,states she's concerned that her is getting forgetful and whenever she calls him she does not get the information she needed to know.Pts updated on pts.status and plan of care.Pt is presently resting quietly in bed,when he wakes up he starts complaining of pain to his rt foot.Pt is aao x 3.Medicated with Tylenol for temp 100.6.Pt does not want to remove his blanket.
--- NOTE | 2020-01-14 21:56 | NUR ---
AWAKE Pt is awake,eating his dinner tray,no signs of pain or discomfort.
[2020-01-14 23:52] VITALS: BP 117/52
[2020-01-15] MEDS: TRAMADOL HCL 50 MG TABLET PO PRN (03:23)
[2020-01-15 04:00] VITALS: BP 126/62
[2020-01-15 05:38] LABS: BASOPHILS % (AUTO) 0.4 % (0.0-5.0); EOSINOPHILS % (AUTO) 2.7 % (0.0-8.0); HEMATOCRIT 22.2 % (42-54); LYMPHOCYTES % (AUTO) 11.1 % (21.0-51.0); MEAN CORPUSCULAR HEMOGLOBIN 29.9 pg (27.0-33.0); MEAN CORPUSCULAR HGB CONC 31.5 g/dL (32.0-36.0); MEAN CORPUSCULAR VOLUME 94.9 fL (79-99); MONOCYTES % (AUTO) 11.3 % (3.0-13.0); PLATELET COUNT (AUTO) 193 K/uL (130-400); RED BLOOD CELL COUNT(AUTO) 2.34 MIL/uL (4.50-6.20); RED CELL DISTRIBUTION WIDTH 15.3 % (11.0-15.5); WHITE BLOOD COUNT (AUTO) 8.1 K/uL (4.8-10.8)
[2020-01-15] MEDS: ZOSYN 3.375GM+NS 50ML 50 ML IV SCH ×2 (05:49→18:43)
[2020-01-15 05:50] LABS: ALBUMIN 2.3 g/dL (3.5-5.0); BILIRUBIN,TOTAL 0.4 mg/dL (0.2-1.0); POTASSIUM 4.6 mmol/L (3.5-5.1); TOTAL PROTEIN, SERUM 6.8 g/dL (6.0-8.3)
[2020-01-15] MEDS: INSULIN HUMULIN R 100 UNIT/ML 3ML SQ SCH ×4 (05:52→21:00)
[2020-01-15 05:55] LABS: CREATININE 9.9 mg/dL (0.5-1.5)
[2020-01-15 08:00] VITALS: BP 133/82
[2020-01-15] MEDS: LOSARTAN 100 MG TABLET PO SCH (09:36)
[2020-01-15] MEDS: FOLIC ACID/VITAMIN B COMP W-C 1 CAP TAB PO SCH (09:37)
[2020-01-15] MEDS: ASPIRIN 81 MG EC TAB PO SCH (09:37)
[2020-01-15] MEDS: AMLODIPINE BESYLATE 5 MG TAB PO SCH (09:38)
[2020-01-15] MEDS: HYDRALAZINE HCL 10 MG TABLET PO SCH ×4 (09:39→21:17)
[2020-01-15] MEDS: CARVEDILOL 25 MG TABLET PO SCH ×2 (09:40→21:17)
[2020-01-15] MEDS: INSULIN GLARGINE 100 UNITS/ML 10 ML VIAL SQ SCH (09:48)
[2020-01-15] MEDS: INSULIN LISPRO 100 UNIT/ML 3ML SQ SCH ×3 (09:49→17:00)
[2020-01-15 12:00] VITALS: BP 133/65
--- NOTE | 2020-01-15 12:16 | NUR ---
CM Note: [facility] reacceptance; [facility] pending approval and delivery for wheelchair CM spoke to pt's spouse Leah Villagran [phone] updated w/POC, spouse verbalized pt already has a current home health w/[facility] for dressing changes in between f/u w/[facility]. Spouse requested wheelchair to assist w/ambulation and transport while at home and during MD appointments. Informed spouse will give updated clinicals to [facility] and work on wheelchair w/[facility]. Informed spouse CM cannot guarantee wheelchair will be approved but will send request for wheelchair. Spouse verbalized understanding. Telephone consent obtained for any HH in network and any DME in network. Faxed order and clinicals to [facility], confirmation received. Primary nurse to give report once pt ready to DC. Faxed oder and clinicals to [facility], confirmation received. Pt pending approval and delivery at home for wheelchair. Pt has own current walker already prior to admission. Primary nurse made aware of above. CM to cont to follow up.
[2020-01-15] MEDS: HYDROMORPHONE HCL 0.5 MG/0.5 ML ML IVP PRN ×2 (12:23→21:18)
--- NOTE | 2020-01-15 14:58 | NUR ---
RAPID RESPONSE ACTIVATED: FOUND PT IN BED VERY LETHARGIC, SWEATY, AND CONFUSED. OBTAINED VITAL SIGNS AND BLOOD SUGAR. VITALS STABLE WITH BLOOD GLUCOSE OF 24 mg/dL. ADMINISTERED D50 PER PROTOCOL. PT BECOMES MORE RESPONSIVE AND ORIENTATED TO SELF. MABEL CHEEK ..SENAIT PROTOTYPE ENGINEER, GITA CHARGE NURSE AND FELA IN ROOM. PAGED DR CROFT TO MAKE AWARE OF SITUATION AND FOR FURTHER ORDERS, PENDING CALL BACK. NOTIFIED OF SITUATION. FINAL BLOOD SUGAR RECHECK STABLE, SEE EMR. PT WAS ASSISTED WITH MEAL. PT BECAME MORE ALERT AND ORIENTED TO PERSON, PLACE AND TIME. WILL CONTINUE TO MONITOR PT STATUS.
[2020-01-15] MEDS ORDERED: DEXTROSE 5 %-0.45 % NACL 1,000 ML IV ONE (15:05)
[2020-01-15 16:00] VITALS: BP 126/76
[2020-01-15 19:00] VITALS: BP 125/72
[2020-01-15] MEDS ORDERED: EPOETIN ALFA 10,000 UNIT/ML VIAL SQ ONE (21:00)
[2020-01-15] MEDS: ATORVASTATIN CALCIUM 20 MG TABLET PO SCH (21:18)
[2020-01-15 23:28] VITALS: BP 140/71
[2020-01-16 03:00] VITALS: BP 132/69
[2020-01-16 04:17] LABS: BASOPHILS % (AUTO) 0.4 % (0.0-5.0); EOSINOPHILS % (AUTO) 3.5 % (0.0-8.0); HEMATOCRIT 22.6 % (42-54); MEAN CORPUSCULAR HEMOGLOBIN 30.2 pg (27.0-33.0); MEAN CORPUSCULAR HGB CONC 32.3 g/dL (32.0-36.0); MEAN CORPUSCULAR VOLUME 93.4 fL (79-99); MONOCYTES % (AUTO) 12.1 % (3.0-13.0); NEUTROPHILS % (AUTO) 70.3 % (40.0-77.0); PLATELET COUNT (AUTO) 201 K/uL (130-400); RED BLOOD CELL COUNT(AUTO) 2.42 MIL/uL (4.50-6.20); WHITE BLOOD COUNT (AUTO) 7.6 K/uL (4.8-10.8)
[2020-01-16] MEDS: HYDROMORPHONE HCL 0.5 MG/0.5 ML ML IVP PRN ×3 (04:35→20:22)
[2020-01-16 04:36] LABS: PHOSPHORUS 12.2 mg/dL (2.5-4.9); POTASSIUM 4.6 mmol/L (3.5-5.1)
[2020-01-16 05:00] LABS: CREATININE 11.6 mg/dL (0.5-1.5)
[2020-01-16] MEDS: ZOSYN 3.375GM+NS 50ML 50 ML IV SCH ×2 (06:34→20:14)
[2020-01-16] MEDS: INSULIN HUMULIN R 100 UNIT/ML 3ML SQ SCH ×4 (06:35→20:27)
[2020-01-16 08:00] VITALS: BP_SYST 137; BP_SYST 173; BP_DIAS 69; BP_DIAS 80
[2020-01-16] MEDS: INSULIN LISPRO 100 UNIT/ML 3ML SQ SCH ×3 (08:00→16:21)
[2020-01-16] MEDS: INSULIN GLARGINE 100 UNITS/ML 10 ML VIAL SQ SCH ×2 (09:00→16:19)
[2020-01-16 12:00] VITALS: BP 172/84
[2020-01-16] MEDS: VANCOMYCIN 1.5 GM in SODIUM CHLORIDE 0.9% 250 ML IV SCH (12:00)
[2020-01-16] MEDS: ASPIRIN 81 MG EC TAB PO SCH (13:06)
[2020-01-16] MEDS: FOLIC ACID/VITAMIN B COMP W-C 1 CAP TAB PO SCH (13:06)
[2020-01-16] MEDS: AMLODIPINE BESYLATE 5 MG TAB PO SCH (13:06)
[2020-01-16] MEDS: CARVEDILOL 25 MG TABLET PO SCH ×2 (13:07→20:15)
[2020-01-16] MEDS: HYDRALAZINE HCL 10 MG TABLET PO SCH ×3 (13:07→20:15)
[2020-01-16] MEDS: LOSARTAN 100 MG TABLET PO SCH (13:08)
[2020-01-16 19:00] VITALS: BP 145/72
[2020-01-16] MEDS: ATORVASTATIN CALCIUM 20 MG TABLET PO SCH (20:15)
[2020-01-16 23:15] VITALS: BP 140/94
[2020-01-17 03:36] VITALS: BP 124/67
[2020-01-17 03:38] LABS: MEAN CORPUSCULAR HEMOGLOBIN 29.8 pg (27.0-33.0); MEAN CORPUSCULAR HGB CONC 31.8 g/dL (32.0-36.0); MEAN CORPUSCULAR VOLUME 93.6 fL (79-99); PLATELET COUNT (AUTO) 239 K/uL (130-400); RED BLOOD CELL COUNT(AUTO) 2.35 MIL/uL (4.50-6.20); RED CELL DISTRIBUTION WIDTH 15.3 % (11.0-15.5); WHITE BLOOD COUNT (AUTO) 7.7 K/uL (4.8-10.8)
[2020-01-17 04:08] LABS: PHOSPHORUS 8.7 mg/dL (2.5-4.9); POTASSIUM 4.5 mmol/L (3.5-5.1)
[2020-01-17 04:09] LABS: BASOPHILS % (MANUAL) 1 % (0-2); EOSINOPHILS % (MANUAL) 2 % (1-6); LYMPHOCYTES % (MANUAL) 7 % (22-44); MAN.DIFF COMMENT-IMPRESSION MANUAL DIFFERENTIAL; MONOCYTES % (MANUAL) 9 % (2-9); SEGMENTED NEUTROPHILS % 81 % (40-70)
[2020-01-17 04:10] LABS: PLATELET MORPHOLOGY COMMENT ADEQUATE
[2020-01-17 04:19] LABS: CREATININE 9.4 mg/dL (0.5-1.5)
[2020-01-17] MEDS: ZOSYN 3.375GM+NS 50ML 50 ML IV SCH (05:52)
[2020-01-17] MEDS: INSULIN HUMULIN R 100 UNIT/ML 3ML SQ SCH ×2 (05:53→11:30)
[2020-01-17 06:14] LABS: HEPATITIS Bs ANTIGEN SCREEN P Negative (Negative)
[2020-01-17] MEDS: HYDROMORPHONE HCL 0.5 MG/0.5 ML ML IVP PRN (06:15)
[2020-01-17 07:58] VITALS: BP 119/74
[2020-01-17] MEDS: LOSARTAN 100 MG TABLET PO SCH (09:01)
[2020-01-17] MEDS: AMLODIPINE BESYLATE 5 MG TAB PO SCH (09:01)
[2020-01-17] MEDS: CARVEDILOL 25 MG TABLET PO SCH (09:01)
[2020-01-17] MEDS: ASPIRIN 81 MG EC TAB PO SCH (09:01)
[2020-01-17] MEDS: FOLIC ACID/VITAMIN B COMP W-C 1 CAP TAB PO SCH (09:01)
[2020-01-17] MEDS: HYDRALAZINE HCL 10 MG TABLET PO SCH ×2 (09:02→13:21)
[2020-01-17] MEDS: INSULIN LISPRO 100 UNIT/ML 3ML SQ SCH ×2 (09:07→13:41)
[2020-01-17 11:00] VITALS: BP 131/73
--- NOTE | 2020-01-17 11:46 | NUR ---
CM Note: [facility] approval and delivered wc to pt's house CM spoke to Naomi camargo/[facility] pt has approval and wheelchair deliverd at patient's house. Script faxed w/MD signature, confirmation received. Pt safe to dc home w/[facility] once MD clear. Primary nurse aware. CM to cont to follow up.
[2020-01-17] MEDS: TRAMADOL HCL 50 MG TABLET PO PRN (13:37)
[2020-01-17] MEDS ORDERED: LEVO500T2 PO (13:48)
[2020-01-17] MEDS ORDERED: AMOX-429 PO (13:48)
--- NOTE | 2020-01-17 13:50 | NUR ---
DR. GUERDA CROFT SPOKE TO PT AT BEDSIDE, IS A DAVILA HE IS REFUSES WHEELCHAIR FROM [facility] STATED HE IS BUYING ONE ON LINE. PER DR. CROFT EXPLAINED TO PT NOT TO PUT ANY WEIGHT TO THE RIGHT FOOT. ALSO RX SCRIPT FOR AUGMENTIN AND LEVAQUIN AND TRAMADOL BID FOR 10 DAYS. PT IS TO F/U WITH DR. COLE IN 1 WEEKS. CM IS AWARE THAT PAITIENT REFUSED WHEEL CHAIR AND SHE CALLED [facility] TO CANCEL WHEELCHIAR
--- NOTE | 2020-01-17 13:58 | NUR ---
CM NOTE/CANCEL WC REQUEST CALL RECEIVED FROM PRIMARY NURSE FOR PATIENT. PER PATIENT, COPAY OF $187 AND IS TOO EXPENSIVE, WISHES TO CANCEL WC ORDER AND WILL BUY PRIVATELY FROM INTERNET. PER PRIMARY NURSE, PATIENT HAS WALKER HE CAN USE TO MOVE AROUND FROM BED TO CHAIR OR CHAIR TO TOILET. [facility]THI[facility] CALLED, SPOKE TO [facility]. WC PENDING DELIVERY. INFORMED OF REQUEST FOR CANCELLATION FROM PATIENT, ORDER CANCELLED REQUEST. PRIMARY NURSE TO DC PATIENT TO HOME WITH HH PREVIOUSLY PLANNED. PER PRIMARY NURSE, DR. CROFT AWARE OF REFUSAL OF WC.
--- NOTE | 2020-01-17 16:04 | NUR ---
D/C PT LEAVING BY WHEELCHAIR IN PVT CAR, IV REMOVED, PT A/A X 3, VS STABLE DRESSING IS DRY AND INTACT, DP PRESENT TO THE RIGHT FOOT. PT GIVEN INSTRUCTIONS FOR D/C AND F/U APPOINTMENTS.
== END 2020-01-17 16:03 | disposition home health service (06) | DRG 239 ==
LOC: EDH 13:14 → OBSVTOIN 16:36 → EDHIP 16:36 → 3BH 01-10 09:39
PROVIDERS: ADMIT Internal Medicine Nephrology; ATTEND Internal Medicine Nephrology
PROC: 5A1D70Z Performance of Urinary Filtration, Intermittent, Less than 6 Hours Per Day (ICD-10-PCS; 2020-01-11)
PROC: 0Y6M0ZB Detachment at Right Foot, Partial 2nd Ray, Open Approach (ICD-10-PCS; 2020-01-13)
PROC: 0Y6M0ZC Detachment at Right Foot, Partial 3rd Ray, Open Approach (ICD-10-PCS; 2020-01-13)
PROC: 0Y6M0ZD Detachment at Right Foot, Partial 4th Ray, Open Approach (ICD-10-PCS; 2020-01-13)
PROC: 0Y6M0ZF Detachment at Right Foot, Partial 5th Ray, Open Approach (ICD-10-PCS; 2020-01-13)
PROC: 0Y6M0Z9 Detachment at Right Foot, Partial 1st Ray, Open Approach (ICD-10-PCS; principal; 2020-01-13 07:30)
PROC: 5A1D70Z Performance of Urinary Filtration, Intermittent, Less than 6 Hours Per Day (ICD-10-PCS; 2020-01-14)
DX: E11.52 Type 2 diabetes mellitus with diabetic peripheral angiopathy with gangrene (principal); N18.6 End stage renal disease; L03.115 Cellulitis of right lower limb; I12.0 Hypertensive chronic kidney disease with stage 5 chronic kidney disease or end stage renal disease; Z68.41 Body mass index [BMI] 40.0-44.9, adult; E11.22 Type 2 diabetes mellitus with diabetic chronic kidney disease; Z99.2 Dependence on renal dialysis; E66.01 Morbid (severe) obesity due to excess calories; E87.5 Hyperkalemia; D64.9 Anemia, unspecified; E11.621 Type 2 diabetes mellitus with foot ulcer; L97.519 Non-pressure chronic ulcer of other part of right foot with unspecified severity; Z91.19 Patient's noncompliance with other medical treatment and regimen; Z03.818 Encounter for observation for suspected exposure to other biological agents ruled out
CPT/HCPCS: 11042; 11045; 36415; 70450; 71045; 80048; 80053; 80202; 82550; 82948; 83540; 83550; 83605; 83874; 84100; 84132; 84145; 84484; 85025; 85027; 85610; 85730; 86704; 86706; 86850; 86900; 86901; 86922; 87040; 87070; 87076; 87077; 87186; 87340; 87520; 88307; 88311; 90935; 93005; 99291; A4450; G0378; G0463; J0885; J1170; J1815; J2405; J2543; J2704; J3010; J3370; J3490; J7042; J7050; J7070; L3260; U0003

== ENCOUNTER → 2020-01-22 | Outpatient (CLI) | payer MEDICARE ==
[~2020-01-22] MED LIST changes: -LIDOCAINE HCL 4% LTA SOL 4 ML VIAL ONE
== END | disposition home or self-care (01) ==
LOC: WHH 09:00
PROVIDERS: ATTEND Podiatrist Foot & Ankle Surgery
DX: T87.89 Other complications of amputation stump (principal); E11.621 Type 2 diabetes mellitus with foot ulcer; I70.235 Atherosclerosis of native arteries of right leg with ulceration of other part of foot; L97.512 Non-pressure chronic ulcer of other part of right foot with fat layer exposed; I70.202 Unspecified atherosclerosis of native arteries of extremities, left leg; E11.22 Type 2 diabetes mellitus with diabetic chronic kidney disease; I12.0 Hypertensive chronic kidney disease with stage 5 chronic kidney disease or end stage renal disease; N18.6 End stage renal disease; E11.52 Type 2 diabetes mellitus with diabetic peripheral angiopathy with gangrene; I96 Gangrene, not elsewhere classified; E11.21 Type 2 diabetes mellitus with diabetic nephropathy; I25.10 Atherosclerotic heart disease of native coronary artery without angina pectoris; E78.5 Hyperlipidemia, unspecified; E66.9 Obesity, unspecified; M19.071 Primary osteoarthritis, right ankle and foot; F32.9 Major depressive disorder, single episode, unspecified; F17.210 Nicotine dependence, cigarettes, uncomplicated; F41.9 Anxiety disorder, unspecified; Z90.49 Acquired absence of other specified parts of digestive tract; Z68.1 Body mass index [BMI] 19.9 or less, adult; Z99.2 Dependence on renal dialysis
CPT/HCPCS: G0463

== ENCOUNTER → 2020-02-05 | Outpatient (CLI) | payer MEDICARE | END | disposition home or self-care (01) | LOC: WHH 08:55 | PROVIDERS: ATTEND Podiatrist Foot & Ankle Surgery | DX: T87.89 Other complications of amputation stump (principal); E11.621 Type 2 diabetes mellitus with foot ulcer; I70.235 Atherosclerosis of native arteries of right leg with ulceration of other part of foot; L97.512 Non-pressure chronic ulcer of other part of right foot with fat layer exposed; I70.202 Unspecified atherosclerosis of native arteries of extremities, left leg; E11.22 Type 2 diabetes mellitus with diabetic chronic kidney disease; I12.0 Hypertensive chronic kidney disease with stage 5 chronic kidney disease or end stage renal disease; N18.6 End stage renal disease; E11.52 Type 2 diabetes mellitus with diabetic peripheral angiopathy with gangrene; I96 Gangrene, not elsewhere classified; E11.21 Type 2 diabetes mellitus with diabetic nephropathy; I25.10 Atherosclerotic heart disease of native coronary artery without angina pectoris; E78.5 Hyperlipidemia, unspecified; E66.9 Obesity, unspecified; M19.071 Primary osteoarthritis, right ankle and foot; F32.9 Major depressive disorder, single episode, unspecified; F17.210 Nicotine dependence, cigarettes, uncomplicated; F41.9 Anxiety disorder, unspecified; Z90.49 Acquired absence of other specified parts of digestive tract; Z68.1 Body mass index [BMI] 19.9 or less, adult; Z99.2 Dependence on renal dialysis; Y83.5 Amputation of limb(s) as the cause of abnormal reaction of the patient, or of later complication, without mention of misadventure at the time of the procedure | CPT/HCPCS: G0463 ==

== ENCOUNTER → 2020-02-19 | Outpatient (CLI) | payer MEDICARE | END | disposition home or self-care (01) | LOC: WHH 08:45 | PROVIDERS: ATTEND Podiatrist Foot & Ankle Surgery | DX: T87.81 Dehiscence of amputation stump (principal); E11.621 Type 2 diabetes mellitus with foot ulcer; I70.235 Atherosclerosis of native arteries of right leg with ulceration of other part of foot; L97.512 Non-pressure chronic ulcer of other part of right foot with fat layer exposed; I70.202 Unspecified atherosclerosis of native arteries of extremities, left leg; E11.22 Type 2 diabetes mellitus with diabetic chronic kidney disease; I12.0 Hypertensive chronic kidney disease with stage 5 chronic kidney disease or end stage renal disease; N18.6 End stage renal disease; E11.52 Type 2 diabetes mellitus with diabetic peripheral angiopathy with gangrene; I96 Gangrene, not elsewhere classified; E11.21 Type 2 diabetes mellitus with diabetic nephropathy; I25.10 Atherosclerotic heart disease of native coronary artery without angina pectoris; E78.5 Hyperlipidemia, unspecified; E66.01 Morbid (severe) obesity due to excess calories; M19.071 Primary osteoarthritis, right ankle and foot; F32.9 Major depressive disorder, single episode, unspecified; F17.210 Nicotine dependence, cigarettes, uncomplicated; F41.9 Anxiety disorder, unspecified; Z90.49 Acquired absence of other specified parts of digestive tract; Z68.1 Body mass index [BMI] 19.9 or less, adult; Z99.2 Dependence on renal dialysis; Y83.5 Amputation of limb(s) as the cause of abnormal reaction of the patient, or of later complication, without mention of misadventure at the time of the procedure | CPT/HCPCS: G0463 ==

== ENCOUNTER → 2020-03-04 | Outpatient (CLI) | payer MEDICARE ==
[~2020-03-04] MED LIST changes: +LIDOCAINE HCL 4% LTA SOL 4 ML VIAL TP ONE
== END | disposition home or self-care (01) ==
LOC: WHH 08:50
PROVIDERS: ATTEND Podiatrist Foot & Ankle Surgery
DX: T87.81 Dehiscence of amputation stump (principal); E11.621 Type 2 diabetes mellitus with foot ulcer; I70.235 Atherosclerosis of native arteries of right leg with ulceration of other part of foot; L97.512 Non-pressure chronic ulcer of other part of right foot with fat layer exposed; I70.202 Unspecified atherosclerosis of native arteries of extremities, left leg; E11.22 Type 2 diabetes mellitus with diabetic chronic kidney disease; I12.0 Hypertensive chronic kidney disease with stage 5 chronic kidney disease or end stage renal disease; N18.6 End stage renal disease; E11.52 Type 2 diabetes mellitus with diabetic peripheral angiopathy with gangrene; I96 Gangrene, not elsewhere classified; E11.42 Type 2 diabetes mellitus with diabetic polyneuropathy; E11.21 Type 2 diabetes mellitus with diabetic nephropathy; I25.10 Atherosclerotic heart disease of native coronary artery without angina pectoris; E78.5 Hyperlipidemia, unspecified; E66.01 Morbid (severe) obesity due to excess calories; M19.071 Primary osteoarthritis, right ankle and foot; F32.9 Major depressive disorder, single episode, unspecified; F17.210 Nicotine dependence, cigarettes, uncomplicated; F41.9 Anxiety disorder, unspecified; Z90.49 Acquired absence of other specified parts of digestive tract; Z68.1 Body mass index [BMI] 19.9 or less, adult; Z99.2 Dependence on renal dialysis; Y83.5 Amputation of limb(s) as the cause of abnormal reaction of the patient, or of later complication, without mention of misadventure at the time of the procedure
CPT/HCPCS: 11042; 11045; A6207

== ENCOUNTER → 2020-03-18 | Outpatient (CLI) | payer MEDICARE ==
[~2020-03-18] MED LIST changes: +AMLO-258 PO; -AMLO10TA7 PO
== END | disposition home or self-care (01) ==
LOC: WHH 09:30
PROVIDERS: ATTEND Podiatrist Foot & Ankle Surgery
DX: T87.89 Other complications of amputation stump (principal); E11.621 Type 2 diabetes mellitus with foot ulcer; I70.235 Atherosclerosis of native arteries of right leg with ulceration of other part of foot; L97.512 Non-pressure chronic ulcer of other part of right foot with fat layer exposed; I70.202 Unspecified atherosclerosis of native arteries of extremities, left leg; E11.22 Type 2 diabetes mellitus with diabetic chronic kidney disease; I12.0 Hypertensive chronic kidney disease with stage 5 chronic kidney disease or end stage renal disease; N18.6 End stage renal disease; E11.52 Type 2 diabetes mellitus with diabetic peripheral angiopathy with gangrene; I96 Gangrene, not elsewhere classified; E11.42 Type 2 diabetes mellitus with diabetic polyneuropathy; E11.21 Type 2 diabetes mellitus with diabetic nephropathy; I25.10 Atherosclerotic heart disease of native coronary artery without angina pectoris; E78.5 Hyperlipidemia, unspecified; E66.01 Morbid (severe) obesity due to excess calories; M19.071 Primary osteoarthritis, right ankle and foot; F32.9 Major depressive disorder, single episode, unspecified; F17.210 Nicotine dependence, cigarettes, uncomplicated; F41.9 Anxiety disorder, unspecified; Z90.49 Acquired absence of other specified parts of digestive tract; Z68.1 Body mass index [BMI] 19.9 or less, adult; Z99.2 Dependence on renal dialysis; Y83.5 Amputation of limb(s) as the cause of abnormal reaction of the patient, or of later complication, without mention of misadventure at the time of the procedure
CPT/HCPCS: 11042; 11045; A6207

== ENCOUNTER → 2020-04-01 | Outpatient (CLI) | payer MEDICARE ==
[~2020-04-01] MED LIST changes: +LIDOCAINE HCL 2% JELLY 5 ML TP ONE; -LIDOCAINE HCL 4% LTA SOL 4 ML VIAL TP ONE
== END | disposition home or self-care (01) ==
LOC: WHH 09:00
PROVIDERS: ATTEND Podiatrist Foot & Ankle Surgery
DX: T87.89 Other complications of amputation stump (principal); E11.621 Type 2 diabetes mellitus with foot ulcer; I70.235 Atherosclerosis of native arteries of right leg with ulceration of other part of foot; L97.512 Non-pressure chronic ulcer of other part of right foot with fat layer exposed; I70.202 Unspecified atherosclerosis of native arteries of extremities, left leg; E11.22 Type 2 diabetes mellitus with diabetic chronic kidney disease; I12.0 Hypertensive chronic kidney disease with stage 5 chronic kidney disease or end stage renal disease; N18.6 End stage renal disease; E11.52 Type 2 diabetes mellitus with diabetic peripheral angiopathy with gangrene; I96 Gangrene, not elsewhere classified; E11.42 Type 2 diabetes mellitus with diabetic polyneuropathy; E11.21 Type 2 diabetes mellitus with diabetic nephropathy; I25.10 Atherosclerotic heart disease of native coronary artery without angina pectoris; E78.5 Hyperlipidemia, unspecified; E66.01 Morbid (severe) obesity due to excess calories; M19.071 Primary osteoarthritis, right ankle and foot; F32.9 Major depressive disorder, single episode, unspecified; F17.210 Nicotine dependence, cigarettes, uncomplicated; F41.9 Anxiety disorder, unspecified; Z90.49 Acquired absence of other specified parts of digestive tract; Z68.1 Body mass index [BMI] 19.9 or less, adult; Z99.2 Dependence on renal dialysis; Y83.5 Amputation of limb(s) as the cause of abnormal reaction of the patient, or of later complication, without mention of misadventure at the time of the procedure
CPT/HCPCS: 11042; 11045; A6207

== ENCOUNTER → 2020-04-08 | Outpatient (CLI) | payer MEDICARE | END | disposition home or self-care (01) | LOC: WHH 09:00 | PROVIDERS: ATTEND Podiatrist Foot & Ankle Surgery | DX: T87.89 Other complications of amputation stump (principal); E11.621 Type 2 diabetes mellitus with foot ulcer; I70.235 Atherosclerosis of native arteries of right leg with ulceration of other part of foot; L97.512 Non-pressure chronic ulcer of other part of right foot with fat layer exposed; I70.202 Unspecified atherosclerosis of native arteries of extremities, left leg; E11.22 Type 2 diabetes mellitus with diabetic chronic kidney disease; I12.0 Hypertensive chronic kidney disease with stage 5 chronic kidney disease or end stage renal disease; N18.6 End stage renal disease; E11.52 Type 2 diabetes mellitus with diabetic peripheral angiopathy with gangrene; I96 Gangrene, not elsewhere classified; E11.42 Type 2 diabetes mellitus with diabetic polyneuropathy; E11.21 Type 2 diabetes mellitus with diabetic nephropathy; I25.10 Atherosclerotic heart disease of native coronary artery without angina pectoris; E78.5 Hyperlipidemia, unspecified; E66.01 Morbid (severe) obesity due to excess calories; M19.071 Primary osteoarthritis, right ankle and foot; F32.9 Major depressive disorder, single episode, unspecified; F17.210 Nicotine dependence, cigarettes, uncomplicated; F41.9 Anxiety disorder, unspecified; Z90.49 Acquired absence of other specified parts of digestive tract; Z68.1 Body mass index [BMI] 19.9 or less, adult; Z99.2 Dependence on renal dialysis; Y83.5 Amputation of limb(s) as the cause of abnormal reaction of the patient, or of later complication, without mention of misadventure at the time of the procedure | CPT/HCPCS: 11042; A6207; 11045 ==

== ENCOUNTER → 2020-04-15 | Outpatient (CLI) | payer MEDICARE ==
[~2020-04-15] MED LIST changes: -LIDOCAINE HCL 2% JELLY 5 ML TP ONE
== END | disposition home or self-care (01) ==
LOC: WHH 09:00
PROVIDERS: ATTEND Podiatrist Foot & Ankle Surgery
DX: T87.89 Other complications of amputation stump (principal); E11.621 Type 2 diabetes mellitus with foot ulcer; I70.235 Atherosclerosis of native arteries of right leg with ulceration of other part of foot; L97.512 Non-pressure chronic ulcer of other part of right foot with fat layer exposed; I70.202 Unspecified atherosclerosis of native arteries of extremities, left leg; E11.22 Type 2 diabetes mellitus with diabetic chronic kidney disease; I12.0 Hypertensive chronic kidney disease with stage 5 chronic kidney disease or end stage renal disease; N18.6 End stage renal disease; E11.52 Type 2 diabetes mellitus with diabetic peripheral angiopathy with gangrene; I96 Gangrene, not elsewhere classified; E11.42 Type 2 diabetes mellitus with diabetic polyneuropathy; E11.21 Type 2 diabetes mellitus with diabetic nephropathy; I25.10 Atherosclerotic heart disease of native coronary artery without angina pectoris; E78.5 Hyperlipidemia, unspecified; E66.01 Morbid (severe) obesity due to excess calories; M19.071 Primary osteoarthritis, right ankle and foot; F32.9 Major depressive disorder, single episode, unspecified; F17.210 Nicotine dependence, cigarettes, uncomplicated; F41.9 Anxiety disorder, unspecified; Z90.49 Acquired absence of other specified parts of digestive tract; Z68.1 Body mass index [BMI] 19.9 or less, adult; Z99.2 Dependence on renal dialysis; Y83.5 Amputation of limb(s) as the cause of abnormal reaction of the patient, or of later complication, without mention of misadventure at the time of the procedure
CPT/HCPCS: A6207; G0463

== ENCOUNTER 2020-06-23 14:40 | Inpatient (IN) | payer MEDICARE, OTHER ==
[~2020-06-23] VITALS: Ht 180.3 cm; Wt 127.4 kg
[2020-06-23 15:26] LABS: BASOPHILS % (AUTO) 0.7 % (0.0-5.0); EOSINOPHILS % (AUTO) 5.2 % (0.0-8.0); HEMATOCRIT 29.1 % (42-54); LYMPHOCYTES % (AUTO) 15.4 % (21.0-51.0); MEAN CORPUSCULAR HEMOGLOBIN 28.7 pg (27.0-33.0); MEAN CORPUSCULAR HGB CONC 30.9 g/dL (32.0-36.0); MEAN CORPUSCULAR VOLUME 92.7 fL (79-99); MONOCYTES % (AUTO) 7.4 % (3.0-13.0); NEUTROPHILS % (AUTO) 70.9 % (40.0-77.0); PLATELET COUNT (AUTO) 232 K/uL (130-400); RED BLOOD CELL COUNT(AUTO) 3.14 MIL/uL (4.50-6.20); RED CELL DISTRIBUTION WIDTH 16.4 % (11.0-15.5); WHITE BLOOD COUNT (AUTO) 7.1 K/uL (4.8-10.8)
[2020-06-23 15:44] LABS: INR 1.16 (0.85-1.15); PROTHROMBIN TIME 12.2 SEC (9.6-11.6)
[2020-06-23 15:46] LABS: PARTIAL THROMBOPLASTIN TIME 23.6 SEC (26.3-35.5)
[2020-06-23 16:05] LABS: BILIRUBIN,TOTAL 0.5 mg/dL (0.2-1.0); TOTAL PROTEIN, SERUM 7.9 g/dL (6.0-8.3)
[2020-06-23 16:13] LABS: POTASSIUM 5.9 mmol/L (3.5-5.1)
[2020-06-23] MEDS ORDERED: IOHEXOL-350 75 ML VIAL IV ONE (18:08)
[2020-06-23] MEDS ORDERED: IOHEXOL 350 MG/ML 100ML INFUS..BTL IV ONE (18:24)
[2020-06-23] MEDS ORDERED: IOHEXOL-350 50ML VIAL IV ONE (18:24)
[2020-06-23 20:04] VITALS: BP 186/93
[2020-06-23] MEDS ORDERED: GLUCAGON 1MG KIT 1 MG ML IM PRN (21:15)
[2020-06-23] MEDS ORDERED: DEXTROSE 50%-WATER 50 ML DISP.SYRIN IV PRN (21:15)
[2020-06-23] MEDS ORDERED: TRAM50TA4 PO (21:24)
[2020-06-23] MEDS ORDERED: LEVO250T43 PO (21:29)
[2020-06-23] MEDS ORDERED: COLL30OI TP (21:29)
[2020-06-23] MEDS ORDERED: FOLI0.8T22 PO (21:29)
[2020-06-23] MEDS: HYDRALAZINE HCL 10 MG TABLET PO SCH (21:50)
[2020-06-24] VITALS (28 sets, daily range): BP systolic 123–188; BP diastolic 35–93
[2020-06-24] MEDS: TRAMADOL HCL 50 MG TABLET PO PRN ×4 (00:07→20:32)
[2020-06-24] MEDS: HYDRALAZINE HCL 10 MG TABLET PO SCH ×4 (00:50→22:03)
[2020-06-24 05:41] LABS: HEMATOCRIT 27.9 % (42-54); MEAN CORPUSCULAR HEMOGLOBIN 28.1 pg (27.0-33.0); MEAN CORPUSCULAR HGB CONC 30.5 g/dL (32.0-36.0); MEAN CORPUSCULAR VOLUME 92.4 fL (79-99); RED BLOOD CELL COUNT(AUTO) 3.02 MIL/uL (4.50-6.20); RED CELL DISTRIBUTION WIDTH 16.3 % (11.0-15.5); WHITE BLOOD COUNT (AUTO) 6.2 K/uL (4.8-10.8)
[2020-06-24] MEDS: INSULIN HUMULIN R 100 UNIT/ML 3ML SQ SCH ×4 (05:52→21:00)
[2020-06-24 05:53] LABS: PHOSPHORUS 5.3 mg/dL (2.5-4.9); POTASSIUM 4.5 mmol/L (3.5-5.1)
[2020-06-24 06:00] LABS: CREATININE 7.9 mg/dL (0.5-1.5)
[2020-06-24] MEDS: LOSARTAN 100 MG TABLET PO SCH (09:00)
[2020-06-24] MEDS ORDERED: NON-FORMULARY MEDICATION 1 EACH (Vit B Cmplx 3/FA/Vit C/Biotin (Rena-Vite Rx Tablet) 1 EAC PO SCH (09:00)
[2020-06-24] MEDS: ASPIRIN 81 MG EC TAB PO SCH (09:00)
[2020-06-24] MEDS: Vitamin B Complex/Vit C/Folic Acid PO SCH (09:00)
[2020-06-24] MEDS: COLLAGENASE CLOSTRIDIUM HIST TP SCH (09:00)
[2020-06-24] MEDS: AMLODIPINE 5 MG TAB PO SCH (09:00)
[2020-06-24] MEDS: CARVEDILOL 25 MG TABLET PO SCH ×2 (10:28→20:29)
[2020-06-24] MEDS ORDERED: CEFAZOLIN SODIUM 1 GM VIAL IVP PRN (12:00)
[2020-06-24] MEDS ORDERED: KETAMINE 50MG/ML SYRINGE 50 MG/ML DISP.SYRIN IV ONE (13:22)
[2020-06-24] MEDS ORDERED: PROPOFOL 10 MG/ML 20ML VIAL IV ONE (13:23)
[2020-06-24] MEDS ORDERED: ROCURONIUM 10MG/1ML SYR 10 MG/ML ML ONE (13:26)
[2020-06-24] MEDS ORDERED: NEOSTIGMINE 5MG/5ML SYR IV ONE (14:00)
[2020-06-24] MEDS ORDERED: ONDANSETRON 4MG INJ ONE (14:00)
[2020-06-24] MEDS ORDERED: GLYCOPYRROLATE 1 MG/5 ML SYRINGE ONE (14:00)
[2020-06-24] MEDS ORDERED: CEFAZOLIN SODIUM 1 GM VIAL ONE (14:01)
[2020-06-24] MEDS ORDERED: TRAMADOL HCL 50 MG TABLET PO PRN (14:15)
[2020-06-24] MEDS ORDERED: ACETAMINOPHEN 325 MG TAB PO PRN (14:30)
[2020-06-24] MEDS: ATORVASTATIN 20 MG TABLET PO SCH (20:28)
[2020-06-24] MEDS: CEFAZOLIN SODIUM 1 GM VIAL IVP SCH (22:04)
[2020-06-25 04:00] VITALS: BP 146/42
[2020-06-25] MEDS: TRAMADOL HCL 50 MG TABLET PO PRN ×3 (05:06→21:12)
[2020-06-25] MEDS: CEFAZOLIN SODIUM 1 GM VIAL IVP SCH ×2 (05:09→17:58)
[2020-06-25] MEDS: HYDRALAZINE HCL 10 MG TABLET PO SCH ×3 (05:10→22:29)
[2020-06-25 05:34] LABS: HEMATOCRIT 27.6 % (42-54); MEAN CORPUSCULAR HEMOGLOBIN 28.9 pg (27.0-33.0); MEAN CORPUSCULAR HGB CONC 31.2 g/dL (32.0-36.0); MEAN CORPUSCULAR VOLUME 92.6 fL (79-99); PLATELET COUNT (AUTO) 201 K/uL (130-400); RED BLOOD CELL COUNT(AUTO) 2.98 MIL/uL (4.50-6.20); RED CELL DISTRIBUTION WIDTH 15.9 % (11.0-15.5)
[2020-06-25 05:52] LABS: POTASSIUM 5.7 mmol/L (3.5-5.1)
[2020-06-25] MEDS: INSULIN HUMULIN R 100 UNIT/ML 3ML SQ SCH ×4 (06:23→21:00)
[2020-06-25 06:29] LABS: CREATININE 10.1 mg/dL (0.5-1.5)
[2020-06-25 08:29] LABS: BASOPHILS % (AUTO) 0.9 % (0.0-5.0); EOSINOPHILS % (AUTO) 5.3 % (0.0-8.0); LYMPHOCYTES % (AUTO) 16.2 % (21.0-51.0); MONOCYTES % (AUTO) 10.3 % (3.0-13.0); NEUTROPHILS % (AUTO) 66.8 % (40.0-77.0)
[2020-06-25 08:59] VITALS: BP 172/88
[2020-06-25 09:14] LABS: HEPATITIS A ANTIBODY IGM Negative (Negative); HEPATITIS B CORE IGM Negative (Negative); HEPATITIS Bs ANTIGEN SCREEN P Negative (Negative)
[2020-06-25] MEDS: COLLAGENASE CLOSTRIDIUM HIST TP SCH (11:08)
[2020-06-25 11:58] VITALS: BP 172/93
[2020-06-25] MEDS ORDERED: FAMOTIDINE 20MG TAB ONE (12:00)
[2020-06-25] MEDS ORDERED: ONDANSETRON 4MG INJ IVP PRN (12:15)
[2020-06-25] MEDS ORDERED: ONDANSETRON 4MG INJ ONE (12:20)
[2020-06-25 17:37] VITALS: BP 188/98
[2020-06-25] MEDS: LOSARTAN 100 MG TABLET PO SCH (17:58)
[2020-06-25] MEDS: AMLODIPINE 5 MG TAB PO SCH (17:58)
[2020-06-25] MEDS: LEVOFLOXACIN 500 MG TABLET PO SCH (17:58)
[2020-06-25] MEDS: Vitamin B Complex/Vit C/Folic Acid PO SCH (17:58)
[2020-06-25] MEDS: ASPIRIN 81 MG EC TAB PO SCH (17:58)
[2020-06-25] MEDS: CARVEDILOL 25 MG TABLET PO SCH ×2 (17:59→21:11)
[2020-06-25 20:13] VITALS: BP 181/88
[2020-06-25] MEDS: ATORVASTATIN 20 MG TABLET PO SCH (21:11)
[2020-06-25 22:38] VITALS: BP 142/73
[2020-06-26] MEDS: TRAMADOL HCL 50 MG TABLET PO PRN ×2 (03:23→20:28)
[2020-06-26 03:45] VITALS: BP 162/82
[2020-06-26 04:41] LABS: HEMATOCRIT 28.5 % (42-54); MEAN CORPUSCULAR HEMOGLOBIN 28.7 pg (27.0-33.0); MEAN CORPUSCULAR HGB CONC 31.2 g/dL (32.0-36.0); MEAN CORPUSCULAR VOLUME 91.9 fL (79-99); PLATELET COUNT (AUTO) 197 K/uL (130-400); RED CELL DISTRIBUTION WIDTH 15.8 % (11.0-15.5); WHITE BLOOD COUNT (AUTO) 5.7 K/uL (4.8-10.8)
[2020-06-26 05:19] LABS: PHOSPHORUS 7.2 mg/dL (2.5-4.9); POTASSIUM 4.4 mmol/L (3.5-5.1)
[2020-06-26 05:46] LABS: EOSINOPHILS % (MANUAL) 4 % (1-6); LYMPHOCYTES % (MANUAL) 11 % (22-44); MAN.DIFF COMMENT-IMPRESSION MANUAL DIFFERENTIAL; MONOCYTES % (MANUAL) 9 % (2-9); PLATELET MORPHOLOGY COMMENT ADEQUATE; SEGMENTED NEUTROPHILS % 76 % (40-70)
[2020-06-26] MEDS: HYDRALAZINE HCL 10 MG TABLET PO SCH ×3 (05:53→20:42)
[2020-06-26] MEDS: INSULIN HUMULIN R 100 UNIT/ML 3ML SQ SCH ×4 (05:54→20:36)
[2020-06-26 05:56] LABS: CREATININE 7.9 mg/dL (0.5-1.5)
[2020-06-26 07:30] VITALS: BP 146/80
[2020-06-26] MEDS: COLLAGENASE CLOSTRIDIUM HIST TP SCH (09:00)
[2020-06-26] MEDS: ASPIRIN 81 MG EC TAB PO SCH (09:43)
[2020-06-26] MEDS: Vitamin B Complex/Vit C/Folic Acid PO SCH (09:44)
[2020-06-26] MEDS: AMLODIPINE 5 MG TAB PO SCH (09:44)
[2020-06-26] MEDS: FAMOTIDINE 20MG TAB PO SCH (09:45)
[2020-06-26] MEDS: LOSARTAN 100 MG TABLET PO SCH (09:45)
[2020-06-26] MEDS: CARVEDILOL 25 MG TABLET PO SCH ×2 (09:45→20:27)
[2020-06-26 11:00] VITALS: BP 169/84
[2020-06-26] MEDS ORDERED: HONEY 1 APPL/ML TUBE TP ONE (15:48)
[2020-06-26 16:00] VITALS: BP 164/83
[2020-06-26 20:08] VITALS: BP 165/82
[2020-06-26] MEDS: ATORVASTATIN 20 MG TABLET PO SCH (20:26)
[2020-06-27 00:08] VITALS: BP 152/81
[2020-06-27] MEDS: TRAMADOL HCL 50 MG TABLET PO PRN ×4 (03:39→20:49)
[2020-06-27 04:12] VITALS: BP 152/83
[2020-06-27 06:20] LABS: BASOPHILS % (AUTO) 0.7 % (0.0-5.0); EOSINOPHILS % (AUTO) 4.9 % (0.0-8.0); LYMPHOCYTES % (AUTO) 13.9 % (21.0-51.0); MEAN CORPUSCULAR HEMOGLOBIN 28.6 pg (27.0-33.0); MEAN CORPUSCULAR HGB CONC 31.4 g/dL (32.0-36.0); MEAN CORPUSCULAR VOLUME 90.9 fL (79-99); MONOCYTES % (AUTO) 10.9 % (3.0-13.0); NEUTROPHILS % (AUTO) 69.4 % (40.0-77.0); PLATELET COUNT (AUTO) 205 K/uL (130-400); RED BLOOD CELL COUNT(AUTO) 3.08 MIL/uL (4.50-6.20); RED CELL DISTRIBUTION WIDTH 15.6 % (11.0-15.5)
[2020-06-27] MEDS: HYDRALAZINE HCL 10 MG TABLET PO SCH ×2 (06:41→15:06)
[2020-06-27] MEDS: INSULIN HUMULIN R 100 UNIT/ML 3ML SQ SCH ×3 (06:59→20:44)
[2020-06-27 08:00] VITALS: BP 155/85
[2020-06-27] MEDS: AMLODIPINE 5 MG TAB PO SCH (08:51)
[2020-06-27] MEDS: ASPIRIN 81 MG EC TAB PO SCH (08:51)
[2020-06-27] MEDS: FAMOTIDINE 20MG TAB PO SCH (08:52)
[2020-06-27] MEDS: LOSARTAN 100 MG TABLET PO SCH (08:52)
[2020-06-27] MEDS: COLLAGENASE CLOSTRIDIUM HIST TP SCH (08:52)
[2020-06-27] MEDS: Vitamin B Complex/Vit C/Folic Acid PO SCH (08:52)
[2020-06-27] MEDS: CARVEDILOL 25 MG TABLET PO SCH ×2 (08:52→20:48)
[2020-06-27] MEDS: LEVOFLOXACIN 500 MG TABLET PO SCH (08:53)
[2020-06-27 11:00] VITALS: BP 145/73
[2020-06-27 16:00] VITALS: BP 164/82
[2020-06-27 20:08] VITALS: BP 162/82
[2020-06-27] MEDS: ATORVASTATIN 20 MG TABLET PO SCH (20:48)
[2020-06-28 00:08] VITALS: BP 152/80
[2020-06-28] MEDS: HYDRALAZINE HCL 10 MG TABLET PO SCH ×4 (00:46→20:51)
[2020-06-28 04:12] VITALS: BP 153/81
[2020-06-28 06:12] LABS: HEMATOCRIT 30.1 % (42-54); MEAN CORPUSCULAR HEMOGLOBIN 28.2 pg (27.0-33.0); MEAN CORPUSCULAR HGB CONC 30.9 g/dL (32.0-36.0); MEAN CORPUSCULAR VOLUME 91.2 fL (79-99); RED BLOOD CELL COUNT(AUTO) 3.3 MIL/uL (4.50-6.20); RED CELL DISTRIBUTION WIDTH 15.3 % (11.0-15.5); WHITE BLOOD COUNT (AUTO) 5.4 K/uL (4.8-10.8)
[2020-06-28] MEDS: INSULIN HUMULIN R 100 UNIT/ML 3ML SQ SCH ×4 (06:38→20:48)
[2020-06-28 06:40] LABS: POTASSIUM 4.6 mmol/L (3.5-5.1)
[2020-06-28 06:42] LABS: CREATININE 8.4 mg/dL (0.5-1.5)
[2020-06-28 08:28] VITALS: BP 174/91
[2020-06-28] MEDS: COLLAGENASE CLOSTRIDIUM HIST TP SCH (09:00)
[2020-06-28] MEDS: TRAMADOL HCL 50 MG TABLET PO PRN ×2 (09:18→20:51)
[2020-06-28] MEDS: AMLODIPINE 5 MG TAB PO SCH (10:51)
[2020-06-28] MEDS: Vitamin B Complex/Vit C/Folic Acid PO SCH (10:51)
[2020-06-28] MEDS: CARVEDILOL 25 MG TABLET PO SCH ×2 (10:52→20:52)
[2020-06-28] MEDS: FAMOTIDINE 20MG TAB PO SCH (10:52)
[2020-06-28] MEDS: LEVOFLOXACIN 500 MG TABLET PO SCH (10:53)
[2020-06-28] MEDS: LOSARTAN 100 MG TABLET PO SCH (10:53)
[2020-06-28] MEDS: ASPIRIN 81 MG EC TAB PO SCH (10:53)
[2020-06-28 11:33] VITALS: BP 163/91
[2020-06-28 16:00] VITALS: BP 195/81
[2020-06-28 20:08] VITALS: BP 162/87
[2020-06-28] MEDS: ATORVASTATIN 20 MG TABLET PO SCH (20:51)
[2020-06-29] VITALS (28 sets, daily range): BP systolic 138–177; BP diastolic 70–88
[2020-06-29] MEDS: HYDRALAZINE HCL 10 MG TABLET PO SCH ×3 (05:32→21:31)
[2020-06-29] MEDS: TRAMADOL HCL 50 MG TABLET PO PRN (05:34)
[2020-06-29 06:11] LABS: HEMATOCRIT 29.6 % (42-54); MEAN CORPUSCULAR HEMOGLOBIN 28.3 pg (27.0-33.0); MEAN CORPUSCULAR HGB CONC 31.8 g/dL (32.0-36.0); MEAN CORPUSCULAR VOLUME 89.2 fL (79-99); RED BLOOD CELL COUNT(AUTO) 3.32 MIL/uL (4.50-6.20); RED CELL DISTRIBUTION WIDTH 15.1 % (11.0-15.5)
[2020-06-29 06:28] LABS: POTASSIUM 4.7 mmol/L (3.5-5.1)
[2020-06-29 06:49] LABS: CREATININE 10.2 mg/dL (0.5-1.5)
[2020-06-29] MEDS: INSULIN HUMULIN R 100 UNIT/ML 3ML SQ SCH ×4 (07:38→21:37)
[2020-06-29] MEDS: COLLAGENASE CLOSTRIDIUM HIST TP SCH (09:00)
[2020-06-29] MEDS: ASPIRIN 81 MG EC TAB PO SCH (09:13)
[2020-06-29] MEDS: LOSARTAN 100 MG TABLET PO SCH (09:13)
[2020-06-29] MEDS: FAMOTIDINE 20MG TAB PO SCH (09:13)
[2020-06-29] MEDS: CARVEDILOL 25 MG TABLET PO SCH ×2 (09:13→21:33)
[2020-06-29] MEDS: Vitamin B Complex/Vit C/Folic Acid PO SCH (09:13)
[2020-06-29] MEDS: AMLODIPINE 5 MG TAB PO SCH (09:14)
[2020-06-29] MEDS ORDERED: LIDOCAINE HCL 1% 20 ML VIAL ONE (16:14)
[2020-06-29] MEDS ORDERED: BUPIVACAINE/PF 0.5% 30ML VIAL ONE (16:14)
[2020-06-29] MEDS ORDERED: 0.9%NACL 1000ML 1,000 ML IV ONE (17:07)
[2020-06-29] MEDS ORDERED: PROPOFOL 1000 MG/100 ML 100 ML IV ONE (17:44)
[2020-06-29] MEDS ORDERED: MIDAZOLAM HCL 1 MG/ML 2ML VIAL ONE (18:07)
[2020-06-29] MEDS ORDERED: MORPHINE 2 MG SYG ONE ×2 (18:47→18:59)
[2020-06-29] MEDS: ATORVASTATIN 20 MG TABLET PO SCH (21:31)
[2020-06-30] VITALS (8 sets, daily range): BP systolic 105–167; BP diastolic 73–85
[2020-06-30 04:28] LABS: HEMATOCRIT 26.3 % (42-54); MEAN CORPUSCULAR HEMOGLOBIN 28.7 pg (27.0-33.0); MEAN CORPUSCULAR HGB CONC 32.3 g/dL (32.0-36.0); MEAN CORPUSCULAR VOLUME 88.9 fL (79-99); RED BLOOD CELL COUNT(AUTO) 2.96 MIL/uL (4.50-6.20); WHITE BLOOD COUNT (AUTO) 6.5 K/uL (4.8-10.8)
[2020-06-30 04:51] LABS: POTASSIUM 5.3 mmol/L (3.5-5.1)
[2020-06-30] MEDS: INSULIN HUMULIN R 100 UNIT/ML 3ML SQ SCH ×4 (05:59→21:32)
[2020-06-30] MEDS: HYDRALAZINE HCL 10 MG TABLET PO SCH ×3 (06:37→20:03)
[2020-06-30] MEDS ORDERED: MORPHINE 2 MG SYG IVP PRN (08:25)
[2020-06-30] MEDS ORDERED: HYDROMORPHONE 1 MG INJ IVP PRN (08:26)
[2020-06-30] MEDS: COLLAGENASE CLOSTRIDIUM HIST TP SCH (09:00)
[2020-06-30] MEDS: ASPIRIN 81 MG EC TAB PO SCH (09:13)
[2020-06-30] MEDS: LOSARTAN 100 MG TABLET PO SCH (09:14)
[2020-06-30] MEDS: Vitamin B Complex/Vit C/Folic Acid PO SCH (09:14)
[2020-06-30] MEDS: CARVEDILOL 25 MG TABLET PO SCH ×2 (09:14→20:03)
[2020-06-30] MEDS: AMLODIPINE 5 MG TAB PO SCH (09:14)
[2020-06-30] MEDS: FAMOTIDINE 20MG TAB PO SCH (09:15)
[2020-06-30] MEDS: HYDROMORPHONE 1 MG INJ IVP PRN ×2 (15:41→20:05)
[2020-06-30] MEDS: ATORVASTATIN 20 MG TABLET PO SCH (20:03)
[2020-07-01] MEDS: HYDROMORPHONE 1 MG INJ IVP PRN ×4 (00:13→13:32)
[2020-07-01 04:00] VITALS: BP 166/82
[2020-07-01] MEDS: HYDRALAZINE HCL 10 MG TABLET PO SCH ×2 (05:49→13:32)
[2020-07-01 06:07] LABS: POTASSIUM 5.1 mmol/L (3.5-5.1)
[2020-07-01 06:14] LABS: MEAN CORPUSCULAR HEMOGLOBIN 28.5 pg (27.0-33.0); MEAN CORPUSCULAR HGB CONC 31.5 g/dL (32.0-36.0); MEAN CORPUSCULAR VOLUME 90.3 fL (79-99); PLATELET COUNT (AUTO) 220 K/uL (130-400); RED BLOOD CELL COUNT(AUTO) 2.88 MIL/uL (4.50-6.20)
[2020-07-01] MEDS: INSULIN HUMULIN R 100 UNIT/ML 3ML SQ SCH ×3 (06:47→16:30)
[2020-07-01 08:19] VITALS: BP 162/84
[2020-07-01 08:46] LABS: BAND NEUTROPHILS % (MANUAL) 1 % (0-2); EOSINOPHILS % (MANUAL) 4 % (1-6); LYMPHOCYTES % (MANUAL) 15 % (22-44); MAN.DIFF COMMENT-IMPRESSION MANUAL DIFFERENTIAL; MONOCYTES % (MANUAL) 6 % (2-9); PLATELET MORPHOLOGY COMMENT ADEQUATE; SEGMENTED NEUTROPHILS % 74 % (40-70)
[2020-07-01] MEDS: COLLAGENASE CLOSTRIDIUM HIST TP SCH (09:00)
[2020-07-01] MEDS: LEVOFLOXACIN 500 MG TABLET PO SCH (10:52)
[2020-07-01] MEDS: CARVEDILOL 25 MG TABLET PO SCH (10:53)
[2020-07-01] MEDS: ASPIRIN 81 MG EC TAB PO SCH (10:53)
[2020-07-01] MEDS: FAMOTIDINE 20MG TAB PO SCH (10:53)
[2020-07-01] MEDS: LOSARTAN 100 MG TABLET PO SCH (10:53)
[2020-07-01] MEDS: Vitamin B Complex/Vit C/Folic Acid PO SCH (10:53)
[2020-07-01] MEDS: AMLODIPINE 5 MG TAB PO SCH (10:53)
[2020-07-01 12:32] VITALS: BP 159/81
== END 2020-07-01 19:00 | disposition home health service (06) | DRG 907 ==
LOC: EDH 14:40 → EDHIP 15:49 → 3CH 16:51
PROVIDERS: ADMIT Internal Medicine Critical Care Medicine; ATTEND Internal Medicine Critical Care Medicine
PROC: 5A1D70Z Performance of Urinary Filtration, Intermittent, Less than 6 Hours Per Day (ICD-10-PCS; 2020-06-23)
PROC: 0J9N00Z Drainage of Right Lower Leg Subcutaneous Tissue and Fascia with Drainage Device, Open Approach (ICD-10-PCS; principal; 2020-06-24 13:21)
PROC: 5A1D70Z Performance of Urinary Filtration, Intermittent, Less than 6 Hours Per Day (ICD-10-PCS; 2020-06-25)
PROC: 5A1D70Z Performance of Urinary Filtration, Intermittent, Less than 6 Hours Per Day (ICD-10-PCS; 2020-06-27)
PROC: 0YU90KZ Supplement Right Lower Extremity with Nonautologous Tissue Substitute, Open Approach (ICD-10-PCS; 2020-06-29)
PROC: 0LBV0ZZ Excision of Right Foot Tendon, Open Approach (ICD-10-PCS; 2020-06-29 17:50)
PROC: 5A1D70Z Performance of Urinary Filtration, Intermittent, Less than 6 Hours Per Day (ICD-10-PCS; 2020-06-30)
DX: T81.89XA Other complications of procedures, not elsewhere classified, initial encounter (principal); N18.6 End stage renal disease; I12.0 Hypertensive chronic kidney disease with stage 5 chronic kidney disease or end stage renal disease; E11.52 Type 2 diabetes mellitus with diabetic peripheral angiopathy with gangrene; Z99.2 Dependence on renal dialysis; E11.22 Type 2 diabetes mellitus with diabetic chronic kidney disease; E66.01 Morbid (severe) obesity due to excess calories; E78.5 Hyperlipidemia, unspecified; G47.33 Obstructive sleep apnea (adult) (pediatric); D63.1 Anemia in chronic kidney disease; E11.621 Type 2 diabetes mellitus with foot ulcer; E87.5 Hyperkalemia; L97.529 Non-pressure chronic ulcer of other part of left foot with unspecified severity; Z91.19 Patient's noncompliance with other medical treatment and regimen; Y83.8 Other surgical procedures as the cause of abnormal reaction of the patient, or of later complication, without mention of misadventure at the time of the procedure; Y92.89 Other specified places as the place of occurrence of the external cause
CPT/HCPCS: 36415; 71045; 73718; 75635; 80048; 80053; 80074; 82948; 84100; 85025; 85027; 85610; 85730; 86850; 86900; 86901; 87040; 87070; 87076; 87077; 87186; 87205; 87426; 90935; 93005; 93925; 97039; G0378; J0690; J1170; J1644; J1815; J2250; J2405; J2704; J2710; J3490; J7030; Q9967; U0003

== ENCOUNTER 2020-07-28 17:28 | Observation (INO) | payer OTHER ==
[~2020-07-28 17:28] MED LIST changes: -AMOX-429 PO; +COLL30OI TP; +FOLI0.8T22 PO; +LEVO250T43 PO; -LEVO500T2 PO; +TRAM50TA4 PO
[2020-07-28 18:04] LABS: BASOPHILS % (AUTO) 0.8 % (0.0-5.0); EOSINOPHILS % (AUTO) 4.1 % (0.0-8.0); HEMATOCRIT 29.9 % (42-54); LYMPHOCYTES % (AUTO) 15.4 % (21.0-51.0); MEAN CORPUSCULAR HEMOGLOBIN 28.3 pg (27.0-33.0); MEAN CORPUSCULAR HGB CONC 30.4 g/dL (32.0-36.0); MEAN CORPUSCULAR VOLUME 93.1 fL (79-99); MONOCYTES % (AUTO) 7.3 % (3.0-13.0); PLATELET COUNT (AUTO) 193 K/uL (130-400); RED BLOOD CELL COUNT(AUTO) 3.21 MIL/uL (4.50-6.20); RED CELL DISTRIBUTION WIDTH 15.5 % (11.0-15.5); WHITE BLOOD COUNT (AUTO) 7.9 K/uL (4.8-10.8)
[2020-07-28 19:29] LABS: ALBUMIN 3.1 g/dL (3.5-5.0); BILIRUBIN,TOTAL 0.4 mg/dL (0.2-1.0); TOTAL PROTEIN, SERUM 7.8 g/dL (6.0-8.3)
[2020-07-28 19:32] LABS: CREATININE 10.5 mg/dL (0.5-1.5); POTASSIUM 7.8 mmol/L (3.5-5.1)
[2020-07-28 23:51] LABS: BILIRUBIN,TOTAL 0.4 mg/dL (0.2-1.0); POTASSIUM 5.1 mmol/L (3.5-5.1); TOTAL PROTEIN, SERUM 7.7 g/dL (6.0-8.3)
[2020-07-28 23:56] LABS: CREATININE 8.3 mg/dL (0.5-1.5)
[2020-07-29] MEDS ORDERED: HYDRALAZINE HCL 10 MG TABLET ONE (08:12)
[2020-07-29] MEDS ORDERED: AMLODIPINE 5 MG TAB ONE (08:12)
== END 2020-07-29 12:00 | disposition left against medical advice (07) ==
LOC: EDH 17:28 → EDHIP 18:55 → INTOOBSV 18:55
PROVIDERS: ADMIT Internal Medicine Nephrology; ATTEND Internal Medicine Nephrology
DX: E87.5 Hyperkalemia (principal); I12.0 Hypertensive chronic kidney disease with stage 5 chronic kidney disease or end stage renal disease; E11.22 Type 2 diabetes mellitus with diabetic chronic kidney disease; E11.21 Type 2 diabetes mellitus with diabetic nephropathy; N18.6 End stage renal disease; E11.51 Type 2 diabetes mellitus with diabetic peripheral angiopathy without gangrene; D64.9 Anemia, unspecified; E11.621 Type 2 diabetes mellitus with foot ulcer; L97.509 Non-pressure chronic ulcer of other part of unspecified foot with unspecified severity; Z91.15 Patient's noncompliance with renal dialysis; Z91.19 Patient's noncompliance with other medical treatment and regimen; Z99.2 Dependence on renal dialysis; Z79.4 Long term (current) use of insulin; Z79.899 Other long term (current) drug therapy
CPT/HCPCS: 36415; 71045; 80053 ×2; 82948; 85025; 93005; 99285; G0378 ×17; 90935

== ENCOUNTER 2020-09-01 18:47 | Inpatient (IN) | payer OTHER ==
[~2020-09-01] VITALS: Ht 180.3 cm; Wt 132.4 kg
[2020-09-01] MEDS ORDERED: ZOSYN 3.375GM+NS 50ML 50 ML IV ONE (19:40)
[2020-09-01] MEDS ORDERED: ONDANSETRON 4MG INJ ONE (19:40)
[2020-09-01] MEDS ORDERED: VANCOMYCIN 1G/250ML KIT 250 ML IV ONE (19:41)
[2020-09-01] MEDS ORDERED: HYDROCODONE/ACETAMINOPHEN 10/325 MG TAB ONE (19:41)
[2020-09-01] MEDS ORDERED: INSULIN HUMULIN R 100 UNIT/ML 3ML ONE (19:42)
[2020-09-01] MEDS ORDERED: 0.9%NACL 1000ML 1,000 ML IV ONE (20:08)
[2020-09-01 20:52] LABS: BASOPHILS % (AUTO) 0.7 % (0.0-5.0); EOSINOPHILS % (AUTO) 3.2 % (0.0-8.0); HEMATOCRIT 36.1 % (42-54); LYMPHOCYTES % (AUTO) 15.5 % (21.0-51.0); MEAN CORPUSCULAR HEMOGLOBIN 30.4 pg (27.0-33.0); MEAN CORPUSCULAR HGB CONC 32.1 g/dL (32.0-36.0); MEAN CORPUSCULAR VOLUME 94.5 fL (79-99); NEUTROPHILS % (AUTO) 70.2 % (40.0-77.0); PLATELET COUNT (AUTO) 232 K/uL (130-400); RED BLOOD CELL COUNT(AUTO) 3.82 MIL/uL (4.50-6.20); RED CELL DISTRIBUTION WIDTH 17.5 % (11.0-15.5); WHITE BLOOD COUNT (AUTO) 7.5 K/uL (4.8-10.8)
[2020-09-01 21:01] LABS: CREATININE 6.9 mg/dL (0.5-1.5); POTASSIUM 4.8 mmol/L (3.5-5.1)
[2020-09-01 21:05] LABS: INR 1.01 (0.85-1.15)
[2020-09-01 21:06] LABS: PARTIAL THROMBOPLASTIN TIME 26.6 SEC (26.3-35.5)
[2020-09-01 21:10] LABS: ALBUMIN 3.1 g/dL (3.5-5.0); BILIRUBIN,TOTAL 0.3 mg/dL (0.2-1.0); CRP QUANTITATIVE 46.4 mg/L (0.00-9.0)
[2020-09-02] MEDS ORDERED: LACTULOSE 20 GM/30 ML UDCUP PO PRN
[2020-09-02] MEDS ORDERED: ACETAMINOPHEN 325 MG TAB PO PRN ×2
[2020-09-02] MEDS ORDERED: ACETAMINOPHEN WITH CODEINE 1 TAB TAB PO PRN
[2020-09-02] MEDS ORDERED: VANCOMYCIN PROTOCOL PER PHARMACY IV PRN
[2020-09-02] MEDS ORDERED: NITROGLYCERIN 0.4 MG SL TAB SL PRN
[2020-09-02] MEDS ORDERED: ONDANSETRON 4MG INJ IV PRN
[2020-09-02] MEDS ORDERED: VANCOMYCIN PROTOCOL PER PHARMACY IV SCH (01:15)
[2020-09-02] MEDS ORDERED: PHARMACY COMMUNICATION MISC SCH ×2 (01:15→09:00)
[2020-09-02] MEDS ORDERED: SERT-439 PO (03:31)
[2020-09-02 03:51] VITALS: BP 172/82
[2020-09-02] MEDS: ACETAMINOPHEN WITH CODEINE 1 TAB TAB PO PRN ×3 (04:46→15:45)
[2020-09-02] MEDS ORDERED: ZOSYN 3.375GM+NS 50ML 50 ML IV SCH ×2 (05:00→21:00)
[2020-09-02] MEDS: Vitamin B Complex/Vit C/Folic Acid PO SCH ×3 (05:45→09:00)
[2020-09-02] MEDS ORDERED: TRAMADOL HCL 50 MG TABLET PO PRN (05:45)
[2020-09-02] MEDS: INSULIN LISPRO 100 UNIT/ML 3ML SQ SCH ×7 (06:43→21:00)
[2020-09-02] MEDS ORDERED: INSULIN LISPRO 100 UNIT/ML 3ML SQ SCH (07:30)
[2020-09-02 08:28] VITALS: BP 177/86
[2020-09-02 08:43] LABS: BASOPHILS % (AUTO) 1.1 % (0.0-5.0); EOSINOPHILS % (AUTO) 3.9 % (0.0-8.0); LYMPHOCYTES % (AUTO) 18.2 % (21.0-51.0); MEAN CORPUSCULAR HEMOGLOBIN 29.5 pg (27.0-33.0); MEAN CORPUSCULAR HGB CONC 30.8 g/dL (32.0-36.0); MONOCYTES % (AUTO) 10.5 % (3.0-13.0); PLATELET COUNT (AUTO) 223 K/uL (130-400); RED BLOOD CELL COUNT(AUTO) 3.96 MIL/uL (4.50-6.20); RED CELL DISTRIBUTION WIDTH 17.2 % (11.0-15.5); WHITE BLOOD COUNT (AUTO) 7.4 K/uL (4.8-10.8)
[2020-09-02 08:47] LABS: CREATININE 7.8 mg/dL (0.5-1.5); POTASSIUM 5.5 mmol/L (3.5-5.1)
[2020-09-02 08:52] LABS: BILIRUBIN,TOTAL 0.3 mg/dL (0.2-1.0); TOTAL PROTEIN, SERUM 7.6 g/dL (6.0-8.3)
[2020-09-02] MEDS: HYDRALAZINE HCL 10 MG TABLET PO SCH ×3 (09:00→22:40)
[2020-09-02] MEDS: ASPIRIN 325 MG TABLET PO SCH (09:00)
[2020-09-02] MEDS: AMLODIPINE 5 MG TAB PO SCH (09:00)
[2020-09-02] MEDS: FAMOTIDINE 20MG TAB PO SCH ×2 (09:00→22:35)
[2020-09-02] MEDS: LOSARTAN 100 MG TABLET PO SCH (09:00)
[2020-09-02] MEDS ORDERED: RENAL DOSE IV SCH (09:00)
[2020-09-02] MEDS: CARVEDILOL 25 MG TABLET PO SCH ×2 (09:00→22:38)
[2020-09-02] MEDS: ASPIRIN 81 MG EC TAB PO SCH (09:00)
[2020-09-02 12:25] VITALS: BP 157/91
[2020-09-02 16:45] VITALS: BP 159/84
[2020-09-02] MEDS ORDERED: VANCOMYCIN 1G/250ML KIT 250 ML IV SCH ×2 (17:30)
[2020-09-02] MEDS: MEROPENEM 1 GM VIAL IVP SCH (18:17)
[2020-09-02 19:31] VITALS: BP 161/84
[2020-09-02] MEDS ORDERED: INSULIN GLARGINE 100 UNITS/ML 10 ML VIAL SQ SCH (21:00)
[2020-09-02] MEDS: ATORVASTATIN 20 MG TABLET PO SCH (22:36)
[2020-09-02] MEDS: SERTRALINE HCL 50 MG TABLET PO SCH (22:38)
[2020-09-02] MEDS: GABAPENTIN 100 MG CAPSULE PO SCH (22:39)
[2020-09-02] MEDS: INSULIN GLARGINE 100 UNITS/ML 10 ML VIAL SQ SCH (22:42)
[2020-09-02 23:24] VITALS: BP 156/83
[2020-09-03 04:46] VITALS: BP 177/86
[2020-09-03 05:31] LABS: PHOSPHORUS 11.7 mg/dL (2.5-4.9)
[2020-09-03 05:35] LABS: POTASSIUM 6.6 mmol/L (3.5-5.1)
[2020-09-03 05:39] LABS: CREATININE 9.5 mg/dL (0.5-1.5)
[2020-09-03] MEDS: INSULIN LISPRO 100 UNIT/ML 3ML SQ SCH ×7 (06:43→20:52)
[2020-09-03 07:00] VITALS: BP 169/83
[2020-09-03] MEDS: ACETAMINOPHEN WITH CODEINE 1 TAB TAB PO PRN (08:22)
[2020-09-03] MEDS: CARVEDILOL 25 MG TABLET PO SCH ×2 (09:00→20:44)
[2020-09-03] MEDS: AMLODIPINE 5 MG TAB PO SCH (09:00)
[2020-09-03] MEDS: ASPIRIN 81 MG EC TAB PO SCH (09:00)
[2020-09-03] MEDS: HYDRALAZINE HCL 10 MG TABLET PO SCH ×3 (09:00→20:43)
[2020-09-03] MEDS: ASPIRIN 325 MG TABLET PO SCH (09:00)
[2020-09-03] MEDS: LOSARTAN 100 MG TABLET PO SCH (09:00)
[2020-09-03] MEDS: Vitamin B Complex/Vit C/Folic Acid PO SCH ×2 (09:00)
[2020-09-03 11:30] VITALS: BP 150/83
[2020-09-03 16:00] VITALS: BP 163/81
[2020-09-03] MEDS ORDERED: VANCOMYCIN 1G/250ML KIT 250 ML IV NR (16:00)
[2020-09-03] MEDS ORDERED: HONEY 1 APPL/ML TUBE TP SCH (16:45)
[2020-09-03] MEDS: FAMOTIDINE 20MG TAB PO SCH ×2 (18:27→20:44)
[2020-09-03] MEDS: MEROPENEM 1 GM VIAL IVP SCH (18:29)
[2020-09-03 19:52] VITALS: BP 169/65
[2020-09-03] MEDS: SERTRALINE HCL 50 MG TABLET PO SCH (20:44)
[2020-09-03] MEDS: GABAPENTIN 100 MG CAPSULE PO SCH (20:44)
[2020-09-03] MEDS: ATORVASTATIN 20 MG TABLET PO SCH (20:44)
[2020-09-03] MEDS: INSULIN GLARGINE 100 UNITS/ML 10 ML VIAL SQ SCH (20:53)
[2020-09-04] VITALS (14 sets, daily range): BP systolic 118–175; BP diastolic 69–89
[2020-09-04 05:16] LABS: BASOPHILS % (AUTO) 0.7 % (0.0-5.0); EOSINOPHILS % (AUTO) 4.2 % (0.0-8.0); HEMATOCRIT 35.1 % (42-54); LYMPHOCYTES % (AUTO) 14.4 % (21.0-51.0); MEAN CORPUSCULAR HEMOGLOBIN 29.1 pg (27.0-33.0); MEAN CORPUSCULAR HGB CONC 31.1 g/dL (32.0-36.0); MEAN CORPUSCULAR VOLUME 93.9 fL (79-99); MONOCYTES % (AUTO) 16.3 % (3.0-13.0); NEUTROPHILS % (AUTO) 64.1 % (40.0-77.0); PLATELET COUNT (AUTO) 197 K/uL (130-400); RED BLOOD CELL COUNT(AUTO) 3.74 MIL/uL (4.50-6.20); RED CELL DISTRIBUTION WIDTH 16.8 % (11.0-15.5); WHITE BLOOD COUNT (AUTO) 6.1 K/uL (4.8-10.8)
[2020-09-04 05:37] LABS: INR 1.09 (0.85-1.15); PROTHROMBIN TIME 11.8 SEC (9.6-11.6)
[2020-09-04 05:38] LABS: PARTIAL THROMBOPLASTIN TIME 28.7 SEC (26.3-35.5)
[2020-09-04 05:58] LABS: PHOSPHORUS 11.2 mg/dL (2.5-4.9); POTASSIUM 5.8 mmol/L (3.5-5.1)
[2020-09-04 06:01] LABS: CREATININE 8.6 mg/dL (0.5-1.5)
[2020-09-04] MEDS: INSULIN LISPRO 100 UNIT/ML 3ML SQ SCH ×7 (06:20→20:02)
[2020-09-04] MEDS: ASPIRIN 81 MG EC TAB PO SCH (09:00)
[2020-09-04] MEDS: Vitamin B Complex/Vit C/Folic Acid PO SCH ×2 (09:00)
[2020-09-04] MEDS: ASPIRIN 325 MG TABLET PO SCH (09:00)
[2020-09-04] MEDS: FAMOTIDINE 20MG TAB PO SCH ×2 (09:00→22:00)
[2020-09-04] MEDS: LOSARTAN 100 MG TABLET PO SCH (10:07)
[2020-09-04] MEDS: AMLODIPINE 5 MG TAB PO SCH (10:07)
[2020-09-04] MEDS: HYDRALAZINE HCL 10 MG TABLET PO SCH ×3 (10:07→20:02)
[2020-09-04] MEDS: CARVEDILOL 25 MG TABLET PO SCH ×2 (10:08→20:00)
[2020-09-04] MEDS ORDERED: MECLIZINE HCL 25 MG TABLET PO SCH (10:30)
[2020-09-04] MEDS ORDERED: NITROGLYCERIN 2 MG VIAL IV ONE (12:06)
[2020-09-04] MEDS ORDERED: IODIXANOL 320 MG/ML 100 ML VIAL ONE (12:07)
[2020-09-04] MEDS ORDERED: HEPARIN 10,000 UNIT/10ML (1,000 UNIT/ML) VIAL ONE (12:07)
[2020-09-04] MEDS ORDERED: LIDOCAINE HCL 400MG/20ML VIAL ONE (12:28)
[2020-09-04] MEDS ORDERED: FENTANYL CITRATE PF 50 MCG/1 ML 2ML VIAL ONE (12:59)
[2020-09-04] MEDS ORDERED: MIDAZOLAM HCL 1 MG/ML 2ML VIAL ONE (12:59)
[2020-09-04] MEDS ORDERED: HYDRALAZINE 20MG/ML VIAL ONE (13:30)
[2020-09-04] MEDS ORDERED: MECLIZINE HCL 12.5 MG TABLET PO PRN (14:00)
[2020-09-04] MEDS: ACETAMINOPHEN WITH CODEINE 1 TAB TAB PO PRN ×2 (14:56→21:34)
[2020-09-04] MEDS: MEROPENEM 1 GM VIAL IVP SCH ×2 (17:00→18:02)
[2020-09-04] MEDS ORDERED: KAYEXALATE 15GM/60ML PO SCH (18:00)
[2020-09-04] MEDS: ATORVASTATIN 20 MG TABLET PO SCH (20:00)
[2020-09-04] MEDS: GABAPENTIN 100 MG CAPSULE PO SCH (20:01)
[2020-09-04] MEDS: SERTRALINE HCL 50 MG TABLET PO SCH (20:01)
[2020-09-04] MEDS: INSULIN GLARGINE 100 UNITS/ML 10 ML VIAL SQ SCH (20:03)
[2020-09-05] VITALS (21 sets, daily range): BP systolic 95–170; BP diastolic 55–83
[2020-09-05] MEDS ORDERED: HYDROMORPHONE 0.5 MG SYG (0.5MG/0.5ML) ONE (01:26)
[2020-09-05] MEDS ORDERED: HYDROMORPHONE 0.5 MG SYG (0.5MG/0.5ML) IVP PRN (01:30)
[2020-09-05] MEDS ORDERED: HYDROMORPHONE 2 MG VIAL (2MG/ML) IVP PRN (01:30)
[2020-09-05] MEDS: ACETAMINOPHEN WITH CODEINE 1 TAB TAB PO PRN ×2 (04:33→05:38)
[2020-09-05] MEDS: INSULIN LISPRO 100 UNIT/ML 3ML SQ SCH ×7 (06:33→20:01)
[2020-09-05] MEDS: AMLODIPINE 5 MG TAB PO SCH (09:00)
[2020-09-05] MEDS: LOSARTAN 100 MG TABLET PO SCH (09:00)
[2020-09-05] MEDS: FAMOTIDINE 20MG TAB PO SCH ×2 (09:00→19:54)
[2020-09-05] MEDS: HYDRALAZINE HCL 10 MG TABLET PO SCH ×3 (09:00→19:54)
[2020-09-05] MEDS: CARVEDILOL 25 MG TABLET PO SCH ×2 (09:00→19:54)
[2020-09-05] MEDS: ASPIRIN 325 MG TABLET PO SCH (09:00)
[2020-09-05] MEDS: Vitamin B Complex/Vit C/Folic Acid PO SCH ×2 (09:00)
[2020-09-05] MEDS: ASPIRIN 81 MG EC TAB PO SCH (09:00)
[2020-09-05] MEDS ORDERED: VANCOMYCIN 1G/250ML KIT 250 ML IV ONE (10:38)
[2020-09-05] MEDS ORDERED: VANCOMYCIN 1G/250ML KIT 250 ML IV NR (16:00)
[2020-09-05] MEDS ORDERED: LIDOCAINE HCL 1% 20 ML VIAL ONE (17:00)
[2020-09-05] MEDS ORDERED: BUPIVACAINE/PF 0.5% 30ML VIAL ONE (17:00)
[2020-09-05] MEDS: MEROPENEM 1 GM VIAL IVP SCH ×2 (17:00→19:00)
[2020-09-05] MEDS ORDERED: MIDAZOLAM HCL 1 MG/ML 2ML VIAL ONE (17:00)
[2020-09-05] MEDS ORDERED: PROPOFOL 1000 MG/100 ML 100 ML IV ONE (17:02)
[2020-09-05] MEDS ORDERED: FENTANYL CITRATE PF 50 MCG/1 ML 2ML VIAL ONE (17:33)
[2020-09-05] MEDS ORDERED: ONDANSETRON 4MG INJ ONE (18:48)
[2020-09-05] MEDS: GABAPENTIN 100 MG CAPSULE PO SCH (19:53)
[2020-09-05] MEDS: ATORVASTATIN 20 MG TABLET PO SCH (19:54)
[2020-09-05] MEDS: SERTRALINE HCL 50 MG TABLET PO SCH (19:54)
[2020-09-05] MEDS: INSULIN GLARGINE 100 UNITS/ML 10 ML VIAL SQ SCH (19:55)
[2020-09-05] MEDS: MORPHINE 2 MG SYG IVP PRN (21:08)
[2020-09-06 00:25] VITALS: BP 139/65
[2020-09-06] MEDS: HYDROMORPHONE 0.5 MG SYG (0.5MG/0.5ML) IVP PRN ×4 (03:39→23:14)
[2020-09-06 04:00] VITALS: BP 153/77
[2020-09-06] MEDS: INSULIN LISPRO 100 UNIT/ML 3ML SQ SCH ×7 (05:19→20:16)
[2020-09-06 05:54] LABS: BASOPHILS % (AUTO) 0.5 % (0.0-5.0); EOSINOPHILS % (AUTO) 2.6 % (0.0-8.0); HEMATOCRIT 25.3 % (42-54); LYMPHOCYTES % (AUTO) 13.5 % (21.0-51.0); MEAN CORPUSCULAR HEMOGLOBIN 28.9 pg (27.0-33.0); MEAN CORPUSCULAR HGB CONC 30.8 g/dL (32.0-36.0); MEAN CORPUSCULAR VOLUME 93.7 fL (79-99); MONOCYTES % (AUTO) 15.6 % (3.0-13.0); NEUTROPHILS % (AUTO) 67.4 % (40.0-77.0); PLATELET COUNT (AUTO) 149 K/uL (130-400); RED CELL DISTRIBUTION WIDTH 16.4 % (11.0-15.5); WHITE BLOOD COUNT (AUTO) 7.6 K/uL (4.8-10.8)
[2020-09-06 06:17] LABS: ALBUMIN 2.5 g/dL (3.5-5.0); BILIRUBIN,TOTAL 0.3 mg/dL (0.2-1.0); POTASSIUM 4.6 mmol/L (3.5-5.1); TOTAL PROTEIN, SERUM 6.5 g/dL (6.0-8.3)
[2020-09-06 06:23] LABS: CREATININE 8.3 mg/dL (0.5-1.5)
[2020-09-06 08:00] VITALS: BP 139/72
[2020-09-06] MEDS: Vitamin B Complex/Vit C/Folic Acid PO SCH ×2 (08:49→08:57)
[2020-09-06] MEDS: FAMOTIDINE 20MG TAB PO SCH ×2 (08:50→19:35)
[2020-09-06] MEDS: ASPIRIN 325 MG TABLET PO SCH (08:50)
[2020-09-06] MEDS: CARVEDILOL 25 MG TABLET PO SCH ×2 (08:51→19:35)
[2020-09-06] MEDS: ASPIRIN 81 MG EC TAB PO SCH (08:51)
[2020-09-06] MEDS: AMLODIPINE 5 MG TAB PO SCH (09:00)
[2020-09-06] MEDS: LOSARTAN 100 MG TABLET PO SCH (09:00)
[2020-09-06] MEDS: HYDRALAZINE HCL 10 MG TABLET PO SCH ×3 (09:00→19:35)
[2020-09-06] MEDS ORDERED: HYDROMORPHONE 1 MG INJ ONE (10:39)
[2020-09-06] MEDS ORDERED: HYDROMORPHONE 2 MG VIAL (2MG/ML) IVP SCH (10:45)
[2020-09-06 12:00] VITALS: BP 94/54
[2020-09-06 16:00] VITALS: BP 147/71
[2020-09-06] MEDS: MEROPENEM 1 GM VIAL IVP SCH (17:57)
[2020-09-06] MEDS: ATORVASTATIN 20 MG TABLET PO SCH (19:34)
[2020-09-06] MEDS: GABAPENTIN 100 MG CAPSULE PO SCH (19:34)
[2020-09-06] MEDS: SERTRALINE HCL 50 MG TABLET PO SCH (19:35)
[2020-09-06] MEDS: MORPHINE 2 MG SYG IVP PRN (19:36)
[2020-09-06] MEDS: INSULIN GLARGINE 100 UNITS/ML 10 ML VIAL SQ SCH (19:36)
[2020-09-06 19:47] VITALS: BP 134/71
[2020-09-07 00:09] VITALS: BP 150/76
[2020-09-07] MEDS: MORPHINE 2 MG SYG IVP PRN ×3 (00:38→13:15)
[2020-09-07 04:14] VITALS: BP 125/59
[2020-09-07 05:23] LABS: ALBUMIN 2.3 g/dL (3.5-5.0); BILIRUBIN,TOTAL 0.3 mg/dL (0.2-1.0); POTASSIUM 5.6 mmol/L (3.5-5.1); TOTAL PROTEIN, SERUM 6.3 g/dL (6.0-8.3)
[2020-09-07 05:27] LABS: BASOPHILS % (AUTO) 0.3 % (0.0-5.0); HEMATOCRIT 21.3 % (42-54); LYMPHOCYTES % (AUTO) 16.2 % (21.0-51.0); MEAN CORPUSCULAR HEMOGLOBIN 29.6 pg (27.0-33.0); MEAN CORPUSCULAR HGB CONC 31.9 g/dL (32.0-36.0); MEAN CORPUSCULAR VOLUME 92.6 fL (79-99); MONOCYTES % (AUTO) 15.1 % (3.0-13.0); NEUTROPHILS % (AUTO) 65.7 % (40.0-77.0); PLATELET COUNT (AUTO) 149 K/uL (130-400); RED CELL DISTRIBUTION WIDTH 16.2 % (11.0-15.5); WHITE BLOOD COUNT (AUTO) 8.9 K/uL (4.8-10.8)
[2020-09-07] MEDS: INSULIN LISPRO 100 UNIT/ML 3ML SQ SCH ×7 (05:28→19:42)
[2020-09-07 05:29] LABS: CREATININE 10.8 mg/dL (0.5-1.5)
[2020-09-07 07:30] VITALS: BP 111/66
[2020-09-07] MEDS: HYDROMORPHONE 0.5 MG SYG (0.5MG/0.5ML) IVP PRN ×3 (08:06→19:27)
[2020-09-07] MEDS: FAMOTIDINE 20MG TAB PO SCH ×2 (08:57→19:47)
[2020-09-07] MEDS: CARVEDILOL 25 MG TABLET PO SCH ×2 (08:58→19:47)
[2020-09-07] MEDS: Vitamin B Complex/Vit C/Folic Acid PO SCH (08:58)
[2020-09-07] MEDS: AMLODIPINE 5 MG TAB PO SCH (09:00)
[2020-09-07] MEDS: LOSARTAN 100 MG TABLET PO SCH (09:01)
[2020-09-07] MEDS: ASPIRIN 81 MG EC TAB PO SCH (09:07)
[2020-09-07 11:00] VITALS: BP 109/67
[2020-09-07] MEDS: HYDRALAZINE HCL 10 MG TABLET PO SCH ×3 (13:00→19:50)
[2020-09-07 16:08] VITALS: BP 110/52
[2020-09-07] MEDS: MEROPENEM 1 GM VIAL IVP SCH (16:56)
[2020-09-07] MEDS: SERTRALINE HCL 50 MG TABLET PO SCH (19:47)
[2020-09-07] MEDS: ATORVASTATIN 20 MG TABLET PO SCH (19:47)
[2020-09-07] MEDS: GABAPENTIN 100 MG CAPSULE PO SCH (19:48)
[2020-09-07] MEDS: INSULIN GLARGINE 100 UNITS/ML 10 ML VIAL SQ SCH (19:49)
[2020-09-07 20:40] VITALS: BP 124/61
[2020-09-08 03:09] LABS: HEPATITIS B CORE IGM Negative (Negative); HEPATITIS Bs ANTIGEN SCREEN P Negative (Negative)
== END 2020-09-07 19:55 | disposition short-term general hospital (02) | DRG 239 ==
LOC: EDH 18:47 → EDHIP 23:58 → 3DH 09-02 00:56
PROVIDERS: ADMIT Internal Medicine; ATTEND Internal Medicine
PROC: 5A1D70Z Performance of Urinary Filtration, Intermittent, Less than 6 Hours Per Day (ICD-10-PCS; 2020-09-02)
PROC: 5A1D70Z Performance of Urinary Filtration, Intermittent, Less than 6 Hours Per Day (ICD-10-PCS; 2020-09-03)
PROC: B4101ZZ Fluoroscopy of Abdominal Aorta using Low Osmolar Contrast (ICD-10-PCS; 2020-09-04)
PROC: B41G1ZZ Fluoroscopy of Left Lower Extremity Arteries using Low Osmolar Contrast (ICD-10-PCS; 2020-09-04)
PROC: B41G1ZZ Fluoroscopy of Left Lower Extremity Arteries using Low Osmolar Contrast (ICD-10-PCS; 2020-09-04)
PROC: 0Y6N0Z9 Detachment at Left Foot, Partial 1st Ray, Open Approach (ICD-10-PCS; 2020-09-05)
PROC: 0Y6N0ZB Detachment at Left Foot, Partial 2nd Ray, Open Approach (ICD-10-PCS; 2020-09-05)
PROC: 0Y6N0ZC Detachment at Left Foot, Partial 3rd Ray, Open Approach (ICD-10-PCS; 2020-09-05)
PROC: 0Y6N0ZD Detachment at Left Foot, Partial 4th Ray, Open Approach (ICD-10-PCS; 2020-09-05)
PROC: 0Y6N0ZF Detachment at Left Foot, Partial 5th Ray, Open Approach (ICD-10-PCS; 2020-09-05)
PROC: 5A1D70Z Performance of Urinary Filtration, Intermittent, Less than 6 Hours Per Day (ICD-10-PCS; principal; 2020-09-05 17:10)
PROC: 30233N1 Transfusion of Nonautologous Red Blood Cells into Peripheral Vein, Percutaneous Approach (ICD-10-PCS; 2020-09-07)
DX: E11.51 Type 2 diabetes mellitus with diabetic peripheral angiopathy without gangrene (principal); N18.6 End stage renal disease; I12.0 Hypertensive chronic kidney disease with stage 5 chronic kidney disease or end stage renal disease; M86.9 Osteomyelitis, unspecified; D62 Acute posthemorrhagic anemia; L03.116 Cellulitis of left lower limb; Z16.24 Resistance to multiple antibiotics; Z68.41 Body mass index [BMI] 40.0-44.9, adult; D63.8 Anemia in other chronic diseases classified elsewhere; E11.22 Type 2 diabetes mellitus with diabetic chronic kidney disease; E11.622 Type 2 diabetes mellitus with other skin ulcer; E11.69 Type 2 diabetes mellitus with other specified complication; E66.01 Morbid (severe) obesity due to excess calories; E78.2 Mixed hyperlipidemia; E83.39 Other disorders of phosphorus metabolism; E87.5 Hyperkalemia; I72.4 Aneurysm of artery of lower extremity; I72.8 Aneurysm of other specified arteries; Z79.4 Long term (current) use of insulin; Z79.82 Long term (current) use of aspirin; T81.89XA Other complications of procedures, not elsewhere classified, initial encounter; Z79.899 Other long term (current) drug therapy; Z82.3 Family history of stroke; Z82.49 Family history of ischemic heart disease and other diseases of the circulatory system; Z83.3 Family history of diabetes mellitus; Z87.891 Personal history of nicotine dependence; Z91.19 Patient's noncompliance with other medical treatment and regimen; Z95.5 Presence of coronary angioplasty implant and graft; Y83.8 Other surgical procedures as the cause of abnormal reaction of the patient, or of later complication, without mention of misadventure at the time of the procedure; Z99.2 Dependence on renal dialysis; E11.40 Type 2 diabetes mellitus with diabetic neuropathy, unspecified; L97.529 Non-pressure chronic ulcer of other part of left foot with unspecified severity; Z20.822 Contact with and (suspected) exposure to COVID-19
CPT/HCPCS: 36246; 36415; 36430; 71045; 73620; 73718; 75716; 76882; 80048; 80053; 80061; 80074; 80202; 82550; 82948; 83036; 83605; 84100; 84132; 84145; 84484; 85025; 85610; 85651; 85730; 86140; 86850; 86900; 86901; 86923; 87040; 87070; 87076; 87077; 87186; 87205; 87426; 88304; 88311; 90935; 93005; 93925; 99156; 99157; 99291; C1894; G0378; J0360; J1170; J1644; J1815; J2185; J2250; J2405; J2543; J2704; J3010; J3370; J3490; J7030; P9016; Q9967; U0003